=== PATIENT | female | born 1995 | race American Indian/Alaskan Native ===

== ENCOUNTER 2018-05-11 00:36 | Inpatient (IN) | payer MEDICAID ==
[2018-05-11] MEDS ORDERED: ZOFRAN IV PRN ×2 (00:52→08:00)
[2018-05-11] MEDS ORDERED: BRETHINE IVP PRN (00:52)
[2018-05-11] MEDS ORDERED: SUBLIMAZE IV PRN (00:52)
[2018-05-11] MEDS ORDERED: STADOL IV PRN (00:52)
[2018-05-11] MEDS ORDERED: MINERAL OIL PO PRN (00:52)
[2018-05-11] MEDS ORDERED: AMPICILLIN/NS 2 GM/100 ML 2 GM/100 ML BAG IV ONE (00:52)
[2018-05-11] MEDS ORDERED: XYLOCAINE 2% INFILTRATI ONE (00:52)
[2018-05-11] MEDS ORDERED: PHENERGAN PO PRN ×2 (00:52→08:00)
[2018-05-11] MEDS ORDERED: BRETHINE SUB-Q PRN (00:52)
--- NOTE | 2018-05-11 00:52 | History and Physical Report ---
History of Present Illness Date of examination: 05/11/18 Date of admission: 05/11/18 00:41 Chief complaint: Labor History of present illness: Pt is a 22yo BF EDC 05/16/18; EGA 39 2/7 weeks presents to L&D complaining of RUC's q 3-4 mins. She received care at [facility] but records are not available. Past History Past Medical History: no pertinent history Past Surgical History: no surgical history Social history: no significant social history, single - Obstetrical History Expected Date of Delivery: 05/16/18 Actual Gestation: 39 Week(s) 2 Day(s) Medications and Allergies Allergies Allergy/AdvReac Type Severity Reaction Status Date / Time No Known Allergies Allergy Verified 05/11/18 01:12 Review of Systems All systems: negative - Vital Signs Vital signs: Vital Signs Pulse Pulse Ox 115 H 98 05/11/18 00:45 05/11/18 00:45 Temp Pulse Resp BP Pulse Ox 107 H 90 05/11/18 00:46 05/11/18 00:46 - Physical Exam Breasts: Positive: deferred Cardiovascular: Regular rate Lungs: Positive: Clear to auscultation Abdomen: Positive: normal appearance Genitourinary (Female): Positive: normal external genitalia Vagina: Positive: normal moisture Uterus: Positive: enlarged Extremities: Positive: normal - Obstetrical FHR: category 1 Uterine Contraction Monitor Mode: External Cervical Dilatation: 5 (per nurse) Cervical Effacement Percentage: 70 (per nurse) station: -2 Uterine Contraction Pattern: Regular Uterine Tone Measurement Phase: Contraction Uterine Contraction Intensity: Moderate Results Result Diagrams: 05/11/18 01:18 All other labs normal. Assessment and Plan - Patient Problems (1) 39 weeks gestation of Onset Date: 05/11/18 Current Visit: Yes Status: Acute Plan to address problem: A: IUP @ 39 2/7 weeks in labor Unknown GBS Anemia P: Admit to L&D for expectant vaginal delivery IV Ampicillin Obtain records
[2018-05-11] MEDS ORDERED: LACTATED RINGERS 1,000 ML IV SCH ×2 (01:00→09:00)
[2018-05-11] MEDS ORDERED: PITOCin/NS 20 UNIT/1000ML DRIP 20 UNITS/1,000 ML BAG IV SCH ×2 (01:00→08:00)
[2018-05-11] MEDS ORDERED: PITOCin/NS 30 UNIT/500ML 30 UNITS/500 ML BAG IV SCH (01:00)
[2018-05-11 01:43] LABS: Hemoglobin 8.6 gm/dl (10.1-14.3); Mean Corpuscular HGB Conc 31 % (30-34); Mean Corpuscular Volume 71 fl (79-97); Platelet Count 315 K/mm3 (140-440); Red Blood Count 3.96 M/mm3 (3.65-5.03); Red Cell Distribution Width 17.7 % (13.2-15.2)
[2018-05-11] MEDS ORDERED: NARCAN 2 MG/2 ML IV PRN (04:31)
--- NOTE | 2018-05-11 04:33 | Anesthesia Consultation ---
Anesthesia Consult and Med Hx Date of service: 05/11/18 - Airway Anesthetic Teeth Evaluation: Good ROM Head & Neck: Adequate Mental/Hyoid Distance: Adequate Mallampati Class: Class III Intubation Access Assessment: Probably Good - Pulmonary Exam CTA: Yes - Cardiac Exam Cardiac Exam: No Murmur - Pre-Operative Health Status ASA Pre-Surgery Classification: ASA2 Proposed Anesthetic Plan: Epidural - Pulmonary Hx Asthma: No COPD: No Hx Pneumonia: No - Cardiovascular System Hx Hypertension: No - Central Nervous System Hx Seizures: No Hx Psychiatric Problems: No - Endocrine Hx Renal Disease: No Hx End Stage Renal Disease: No Hx Hypothyroidism: No Hx Hyperthyroidism: No - Hematic Hx Anemia: No Hx Sickle Cell Disease: No - Other Systems Hx Alcohol Use: No
--- NOTE | 2018-05-11 04:33 | Anesthesia Day of Surgery ---
Anesthesia Day of Surgery - Day of Surgery Patient Examined: Yes Patient H&P Reviewed: Yes Patient is NPO: Yes Beta Blockers: No Cardiac Clearance: No Pulmonary Clearance: No
[2018-05-11] MEDS ORDERED: AMPICILLIN/NS 1 GM/50 ML 1 GM/50 ML BAG IV SCH (04:53)
[2018-05-11] MEDS: fentaNYL-BUPIV 2 MCG/ML-0.125% 200 MCG/100 ML BAG EPIDURAL SCH ×2 (05:03→07:20)
--- NOTE | 2018-05-11 07:31 | Procedure Note ---
OB Delivery Note - Delivery Date of Delivery: 05/11/18 Surgeon: CHEL TATE Estimated blood loss: other (150mls) - Vaginal Delivery presentation: vertex Delivery position: OA Intrapartum events: mult.variable deceleratio Delivery induction: none Delivery augmentation: rupture of membranes Delivery monitor: external FHT, external uterine Route of delivery: Delivery placenta: spontaneous Delivery cord: nuchal cord, 3 umbilical vessels Episiotomy: none Delivery laceration: none Anesthesia: epidural Delivery comments: delivered OA and placed on Mom's chest for [id number] bonding and delayed cord clamping - Infant A at 1 minute: 8 at 5 minutes: 9 Infant Gender: Male (2746gms)
[2018-05-11] MEDS ORDERED: PHENERGAN PR PRN (08:00)
[2018-05-11] MEDS ORDERED: BENADRYL PO PRN (08:00)
[2018-05-11] MEDS ORDERED: SODIUM CHLORIDE FLUSH SYRINGE 10 ML IV PRN (08:00)
[2018-05-11] MEDS ORDERED: TYLENOL PO PRN (08:00)
[2018-05-11] MEDS ORDERED: NORCO 5/325 PO PRN (08:00)
[2018-05-11] MEDS ORDERED: TUCKS PAD TP PRN (08:00)
[2018-05-11] MEDS ORDERED: LANSINOH TP PRN (08:00)
[2018-05-11] MEDS ORDERED: LACTATED RINGERS 1,000 ML ONE (09:02)
[2018-05-11] MEDS ORDERED: DULCOLAX PR PRN (10:00)
[2018-05-11 10:02] LABS: Hematocrit 26.3 % (30.3-42.9); Hemoglobin 8.4 gm/dl (10.1-14.3)
[2018-05-11 10:25] LABS: Amphetamine Screen,Urine PRESUMPTIVE NEGATIVE; Benzodiazepines Screen,Urine PRESUMPTIVE NEGATIVE; Cannabinoid Screen,Urine PRESUMPTIVE NEGATIVE; Cocaine Screen,Urine PRESUMPTIVE NEGATIVE; Methadone Screen,Urine PRESUMPTIVE NEGATIVE; Opiate Screen,Urine PRESUMPTIVE NEGATIVE
[2018-05-11] MEDS ORDERED: AMMONIA INHALANT IH ONE ×2 (13:39→14:30)
[2018-05-11] MEDS: PRENATAL VITAMIN PO SCH (14:56)
[2018-05-11] MEDS: COLACE PO SCH ×2 (14:56→22:09)
[2018-05-11] MEDS: FEOSOL PO SCH ×2 (14:56→22:09)
[2018-05-11] MEDS: IBUPROFEN PO SCH ×2 (14:57→20:20)
[2018-05-11 19:54] LABS: Hematocrit 26.2 % (30.3-42.9); Hemoglobin 8.1 gm/dl (10.1-14.3)
[2018-05-11] MEDS ORDERED: MILK OF MAGNESIA PO PRN (22:00)
[2018-05-12] MEDS: IBUPROFEN PO SCH ×3 (05:32→18:02)
[2018-05-12] MEDS ORDERED: BOOSTRIX IM ONE (06:00)
[2018-05-12] MEDS ORDERED: M-M-R II VACCINE SUB-Q ONE (11:00)
[2018-05-12] MEDS: FEOSOL PO SCH ×2 (11:49→21:57)
[2018-05-12] MEDS: COLACE PO SCH ×2 (11:50→21:57)
[2018-05-12] MEDS: PRENATAL VITAMIN PO SCH (11:50)
--- NOTE | 2018-05-12 12:12 | Progress Note ---
Assessment and Plan - Patient Problems (1) 39 weeks gestation of Onset Date: 05/11/18 Current Visit: Yes Status: Resolved (2) (normal spontaneous vaginal delivery) Onset Date: 05/12/18 Current Visit: Yes Status: Resolved Plan to address problem: A: S/P - PPD #1 Doing well Asymptomatic anemia - stable P: May go home today. Subjective - Subjective Date of service: 05/12/18 Principal diagnosis: s/p - PPD #1 Interval history: Pt is a 22yo BF EDC 05/16/18; EGA 39 2/7 weeks presents to L&D complaining of RUC's q 3-4 mins. She received care at [facility] but records are not available. Objective - Vital Signs Latest vital signs: Vital Signs Temp Pulse Resp BP BP Pulse Ox 05/12/18 07:40 98.1 F 70 16 95/53 98 05/11/18 23:57 97.2 F L 93 H 20 104/52 99 05/11/18 16:04 98.6 F 84 18 99/47 Intake and Output 05/11/18 05/12/18 05/12/18 22:59 06:59 14:59 Intake Total 840 240 120 Balance 840 240 120 Intake: Oral 440 240 120 Other 400 Other: Total, Intake Amount 200 240 120 # Voids Void 1 1 1 - Exam Breasts: Present: deferred Abdomen: Present: normal appearance, soft Uterus: Present: normal, firm, fundal height below umbilicus Extremities: Present: normal - Labs Labs: Abnormal lab results 05/11/18 Range/Units 19:35 Hgb 8.1 L (10.1-14.3) gm/dl Hct 26.2 L (30.3-42.9) % Laboratory Tests 05/11/18 05/11/18 05/11/18 01:18 01:18 01:30 WBC 8.6 RBC 3.96 Hgb 8.6 L Hct 28.0 L MCV 71 L MCH 22 L MCHC 31 RDW 17.7 H Plt Count 315 Urine Opiates Screen Urine Methadone Screen Ur Barbiturates Screen Ur Phencyclidine Scrn Ur Amphetamines Screen U Benzodiazepines Scrn Urine Cocaine Screen U Marijuana (THC) Screen Drugs of Abuse Note RPR Nonreactive Blood Type O POSITIVE Antibody Screen Negative 05/11/18 05/11/18 05/11/18 09:38 10:00 19:35 WBC RBC Hgb 8.4 L 8.1 L Hct 26.3 L 26.2 L MCV MCH MCHC RDW Plt Count Urine Opiates Screen Presumptive negative Urine Methadone Screen Presumptive negative Ur Barbiturates Screen Presumptive negative Ur Phencyclidine Scrn Presumptive negative Ur Amphetamines Screen Presumptive negative U Benzodiazepines Scrn Presumptive negative Urine Cocaine Screen Presumptive negative U Marijuana (THC) Screen Presumptive negative Drugs of Abuse Note Disclamer RPR Blood Type Antibody Screen
--- NOTE | 2018-05-12 12:15 | Discharge Summary ---
Providers - Providers Date of Admission: 05/11/18 00:41 Date of discharge: 05/12/18 Attending physician: CHEL TATE Primary care physician: CHEL TATE Hospitalization Reason for admission: active labor, IUP at term Delivery: Episiotomy: none Laceration: none Other procedures: none complications: none Discharge diagnosis: IUP at term delivered [place] baby: male Hospital course: Unremarkable. Condition at discharge: Good Disposition: DC-01 TO HOME OR SELFCARE - Discharge Diagnoses (1) 39 weeks gestation of Status: Resolved (2) (normal spontaneous vaginal delivery) Status: Resolved Plan - Discharge Medications Prescriptions: Ferrous Sulfate [Feosol 325 MG tab] 325 mg PO BID #60 tablet Ibuprofen [Motrin 600 MG tab] 600 mg PO Q6H #30 tablet Vit-Fe Fumar-FA [ Vitamin] 1 each PO QDAY #30 tablet - Provider Discharge Summary Activity: routine, no sex for 6 weeks, no heavy lifting 4 weeks, no strenuous exercise Diet: routine Instructions: routine Additional instructions: [] Smoking cessation referral if applicable(refer to patient education folder for contact #) [] Refer to [facility] Booklet Call your doctor immediately for: * Fever > 100.5 * Heavy vaginal bleeding ( >1 pad per hour) * Severe persistent headache * Shortness of breath * Reddened, hot, painful area to leg or breast * Drainage or odor from incision. * Keep incision clean and dry at all times and follow doctor's instructions regarding bathing/showering - Follow up plan Follow up: CHEL TATE MD [Primary Care Provider] - 6 Weeks
[2018-05-12 16:56] VITALS: BP 112/66
== END 2018-05-12 23:52 | disposition home or self-care (01) | DRG 775 ==
LOC: TRG 00:36 → LD 00:41 → OB 09:22
PROVIDERS: ADMIT Obstetrics & Gynecology; ATTEND Obstetrics & Gynecology
PROC: 10E0XZZ Delivery of Products of Conception, External Approach (ICD-10-PCS; principal; 2018-05-11)
PROC: 3E0R3BZ Introduction of Anesthetic Agent into Spinal Canal, Percutaneous Approach (ICD-10-PCS; 2018-05-11)
PROC: 3E0R33Z Introduction of Anti-inflammatory into Spinal Canal, Percutaneous Approach (ICD-10-PCS; 2018-05-11)
PROC: 3E0234Z Introduction of Serum, Toxoid and Vaccine into Muscle, Percutaneous Approach (ICD-10-PCS; 2018-05-12)
DX: O76 Abnormality in fetal heart rate and rhythm complicating labor and delivery (principal); O99.02 Anemia complicating childbirth; D64.9 Anemia, unspecified; O69.81X0 Labor and delivery complicated by cord around neck, without compression, not applicable or unspecified; Z37.0 Single live birth; Z3A.39 39 weeks gestation of pregnancy; Z23 Encounter for immunization
CPT/HCPCS: 36415; 80307; 85014; 85018; 85027; 86592; 86850; 86900; 86901; 90471; 90715; G0378; J0290; J0595; J2590; J3010; J7120

== ENCOUNTER 2020-08-20 07:41 | Emergency (ER) | payer SELFPAY ==
[2020-08-20] MEDS ORDERED: HYDROcodone/ACETAMINOPHEN 7.5-325MG TAB PO ONE (10:18)
--- NOTE | 2020-08-20 10:22 | Emergency Department Report ---
ED ENT HPI - General Chief complaint: Dental/Oral Stated complaint: TOOTHACHE Time Seen by Provider: 08/20/20 10:17 Source: patient Mode of arrival: Ambulatory Limitations: No Limitations - History of Present Illness Initial comments: 24-year-old -[place] female presents to the emergency room complaining of right upper teeth pain that is been going on intermittently for 1 year but the last week is gotten worse. Patient states that it is a partial tooth that is broken off. Patient states she has been taking Aleve last dose was last night. She denies any difficulty swallowing no fever no chills no nausea no vomiting. She denies smoking cigarettes. She states that she does have a dentist in [place] but she is not able to afford the tooth to be extracted. MD complaint: tooth pain Onset/Timin -: week(s) (1 week reoccurring), year(s) Location: tooth # (6) Severity scale (0 -10): 10 Quality: stabbing, aching, sharp, constant Consistency: constant Improves with: none Worsens with: eating Context- Dental: history of dental caries Associated Symptoms: gum swelling, toothache - Related Data Previous Rx's Medication Instructions Recorded Last Taken Type Clindamycin [Clindamycin CAP] 300 mg PO Q8H #30 cap 08/20/20 Unknown Rx Ibuprofen [Motrin 800 MG tab] 800 mg PO Q8HR PRN #30 tablet 08/20/20 Unknown Rx traMADoL [Ultram 50 MG tab] 50 mg PO Q6HR PRN #12 tablet 08/20/20 Unknown Rx Allergies Allergy/AdvReac Type Severity Reaction Status Date / Time No Known Allergies Allergy Verified 08/20/20 08:11 ED Dental HPI - General Chief complaint: Dental/Oral Stated complaint: TOOTHACHE Time Seen by Provider: 08/20/20 10:17 Source: patient Mode of arrival: Ambulatory Limitations: No Limitations - Related Data Previous Rx's Medication Instructions Recorded Last Taken Type Clindamycin [Clindamycin CAP] 300 mg PO Q8H #30 cap 08/20/20 Unknown Rx Ibuprofen [Motrin 800 MG tab] 800 mg PO Q8HR PRN #30 tablet 08/20/20 Unknown Rx traMADoL [Ultram 50 MG tab] 50 mg PO Q6HR PRN #12 tablet 08/20/20 Unknown Rx Allergies Allergy/AdvReac Type Severity Reaction Status Date / Time No Known Allergies Allergy Verified 08/20/20 08:11 ED Review of Systems ROS: Stated complaint: TOOTHACHE Other details as noted in HPI Comment: All other systems reviewed and negative ED Past Medical Hx - Past Medical History Hx Hypertension: No Hx Congestive Heart Failure: No Hx Diabetes: No Hx Deep Vein Thrombosis: No Hx Renal Disease: No Hx Sickle Cell Disease: No Hx Seizures: No Hx Asthma: No Hx COPD: No Hx HIV: No - Social History Smoking Status: Never Smoker Substance Use Type: None - Medications Home Medications: Home Medications Medication Instructions Recorded Confirmed Last Taken Type Clindamycin [Clindamycin CAP] 300 mg PO Q8H #30 cap 08/20/20 Unknown Rx Ibuprofen [Motrin 800 MG tab] 800 mg PO Q8HR PRN #30 tablet 08/20/20 Unknown Rx traMADoL [Ultram 50 MG tab] 50 mg PO Q6HR PRN #12 tablet 08/20/20 Unknown Rx ED Physical Exam - General Limitations: No Limitations General appearance: alert, in no apparent distress, other (Tearful) - Head Head exam: Present: atraumatic, normocephalic - Eye Eye exam: Present: normal appearance - ENT ENT exam: Present: mucous membranes moist - Expanded ENT Exam Expanded Teeth exam: Present: fractured tooth # (6), dental tenderness # (6), gingival enlargement - Neck Neck exam: Present: normal inspection, full ROM. Absent: tenderness - Respiratory Respiratory exam: Absent: accessory muscle use - Cardiovascular Cardiovascular Exam: Present: regular rate - Extremities Exam Extremities exam: Present: normal inspection, full ROM - Back Exam Back exam: Present: normal inspection - Neurological Exam Neurological exam: Present: alert, oriented X3, normal gait - Psychiatric Psychiatric exam: Present: normal affect, normal mood - Skin Skin exam: Present: warm, dry, intact, normal color. Absent: rash ED Medical Decision Making - Medical Decision Making 24-year-old -[place] female presents to the emergency room complaining of right upper teeth pain that is been going on intermittently for 1 year but the last week is gotten worse. Patient states that it is a partial tooth that is broken off. Patient states she has been taking Aleve last dose was last night. She denies any difficulty swallowing no fever no chills no nausea no vomiting. She denies smoking cigarettes. She states that she does have a dentist in [place] but she is not able to afford the tooth to be extracted. Patient is given a [place] 7.5 mg in ACC and will be discharged on clindamycin 300 mg every 8 hours and tramadol 50 mg every 8 hours as well as ibuprofen 800 mg every 8 hours Critical care attestation.: If time is entered above; I have spent that time in minutes in the direct care of this critically ill patient, excluding procedure time. ED Disposition Clinical Impression: Dental abscess Disposition: TO HOME OR SELFCARE Is pt being admited?: No Does the pt Need Aspirin: No Condition: Stable Instructions: Dental Abscess, [id number] Additional Instructions: Please take medication as prescribed. Is very important for you to follow-up with a dentist. I have listed several below for your convenience Prescriptions: Clindamycin [Clindamycin CAP] 300 mg PO Q8H #30 cap Ibuprofen [Motrin 800 MG tab] 800 mg PO Q8HR PRN #30 tablet PRN Reason: Pain , Severe (7-10) traMADoL [Ultram 50 MG tab] 50 mg PO Q6HR PRN #12 tablet PRN Reason: Pain Referrals: [facility] [Outside] - 3-5 Days [facility] [Outside] - 3-5 Days [facility] [Outside] - 3-5 Days Forms: Work/School Release Form(ED)
[2020-08-20 10:26] VITALS: BP 123/71
== END 2020-08-20 11:09 | disposition home or self-care (01) ==
LOC: ED 07:41
DX: K04.7 Periapical abscess without sinus (principal); Z79.899 Other long term (current) drug therapy
CPT/HCPCS: 99282

== ENCOUNTER 2020-11-06 15:35 | Emergency (ER) | payer SELFPAY ==
[2020-11-06 16:51] VITALS: BP 131/65
--- NOTE | 2020-11-06 16:58 | Emergency Department Report ---
Chief Complaint: Medical Clearance Stated Complaint: STD CHECK Time Seen by Provider: 11/06/20 16:51 - HPI History of Present Illness: Patient is a 24-year-old female presents emergency room with points of a routine STD check. She denies any symptoms at all currently. She states that she just wants to have a routine panel performed. No past medical history. No allergies medications. Vitals are stable On exam: Non toxic appearing, no acute distress atraumatic, normocephalic normal appearance of the eyes, EOMI, no periorbital edema or ecchymosis moist mucus membranes No respiratory stress, no accessory muscle use A&O x4, no focal neuro deficit skin is warm, dry, intact Patient is presenting for asymptomatic routine STD screening Patient given the appropriate resources Discussed return precautions Medical screen examination performed and there is no threat to life or limb at this time - Exam Vital Signs: Vital Signs 11/06/20 16:50 Temperature 97.8 F Pulse Rate 91 H Respiratory 18 Rate Blood Pressure 131/65 O2 Sat by Pulse 99 Oximetry MSE screening note: Focused history and physical exam performed. Due to findings the following was ordered: ED Disposition for MSE Clinical Impression: Encounter for medical screening examination Disposition: Z-07 MED SCREENING EXAM-LEFT Is pt being admited?: No Does the pt Need Aspirin: No Condition: Stable Additional Instructions: Please follow-up with the clinic or the health department for full STD panel. Please have any partners tested and treated as well. Avoid sexual intercourse. return to emergency room for new or worsening symptoms. walk in clinic: [facility] Address: [address] [place] [id number] Referrals: [facility] [Provider Group] - 2-3 Days [facility] [Outside] - 2-3 Days [facility] [Provider Group] - 2-3 Days Time of Disposition: 16:56 Print Language: SOUTH KOREAN
== END 2020-11-06 16:58 | disposition left against medical advice (07) ==
LOC: ED 15:35
DX: Z11.3 Encounter for screening for infections with a predominantly sexual mode of transmission (principal); Z53.21 Procedure and treatment not carried out due to patient leaving prior to being seen by health care provider

== ENCOUNTER 2021-03-15 22:21 | Inpatient (IN) | payer SELFPAY ==
[2021-03-15] MEDS ORDERED: ONDANSETRON 4 MG ODT TAB PO ONE (22:58)
[2021-03-15] MEDS ORDERED: SODIUM CHLORIDE 0.9% 1000 ML 1,000 ML IV ONE ×2 (23:19→23:54)
--- NOTE | 2021-03-15 23:21 | Event Note ---
ED Screening Note Date of service: 03/15/21 Time: 23:20 ED Screening Note: Patient a 25-year-old -[place] female who presents for chest pain, shortness of breath abdominal pain with nausea vomiting, malaise ,dysuria frequency x3 days. Patient denies suspicious contact there is been no travel, no cough. Denies other medical history. This initial assessment/diagnostic orders/clinical plan/treatment(s) is/are subject to change based on patients health status, clinical progression and re- assessment by fellow clinical providers in the ED. Further treatment and workup at subsequent clinical providers discretion. Patient/guardian urged not to elope from the ED as their condition may be serious if not clinically assessed and managed. Initial orders include: ekg, cxr, cmp, cbc, lipase, lactic, ua, hcg, iv, IVFs,
[2021-03-16] MEDS ORDERED: fentaNYL 100 MCG/2 ML INJ IV ONE
--- NOTE | 2021-03-16 00:05 | Emergency Department Report ---
HPI - General Chief Complaint: Back Pain/Injury Time Seen by Provider: 03/15/21 22:54 - HPI HPI: Room 37 The patient is a 25-year-old female present with a chief complaint left flank pain. Patient states she has had pain intermittently in her left flank for the past 3 weeks associated with nausea and vomiting and decreased p.o. intake. The patient states she is also felt short of breath occasionally for approximately 2.5 weeks. Patient denies history of cough or fever. Patient states she has had diarrhea for the past 2.5 weeks. Patient denies dysuria or hematuria. Patient states she has not been vaccinated against Covid. The patient states a family member drove her to the emergency department and she is not driving. Patient currently gives her pain a score of 5/10 ED Past Medical Hx - Past Medical History Previous Medical History?: No - Surgical History Past Surgical History?: No - Family History Family history: no significant - Social History Smoking Status: Never Smoker Substance Use Type: None (Denies illicit drug) - Medications Home Medications: Home Medications Medication Instructions Recorded Confirmed Last Taken Type Clindamycin [Clindamycin CAP] 300 mg PO Q8H #30 cap 08/20/20 Unknown Rx Ibuprofen [Motrin 800 MG tab] 800 mg PO Q8HR PRN #30 tablet 08/20/20 Unknown Rx traMADoL [Ultram 50 MG tab] 50 mg PO Q6HR PRN #12 tablet 08/20/20 Unknown Rx ED Review of Systems ROS: Stated complaint: BREATHING/HEAVY BLEEDING Other details as noted in HPI Constitutional: denies: fever Eyes: denies: eye pain ENT: denies: throat pain Respiratory: shortness of breath. denies: cough Cardiovascular: denies: chest pain Endocrine: no symptoms reported Gastrointestinal: nausea, vomiting, diarrhea Genitourinary: denies: dysuria, hematuria Musculoskeletal: back pain Neurological: denies: headache Physical Exam - Physical Exam Vital Signs: Vital Signs 03/15/21 22:26 Temperature 99.3 F Pulse Rate 142 H Respiratory 17 Rate Blood Pressure 134/90 O2 Sat by Pulse 99 Oximetry Physical Exam: GENERAL: The patient is well-developed well-nourished female sitting on stretcher not appearing to be in acute distress. [] HEENT: Normocephalic. Atraumatic. Extraocular motions are intact. Patient has moist mucous membranes. NECK: Supple. Trachea midline CHEST/LUNGS: Clear to auscultation. There is no respiratory distress noted. HEART/CARDIOVASCULAR: Regular. There is tachycardia. There is no gallop rub or murmur. ABDOMEN: Abdomen is soft, nontender. Patient has normal bowel sounds. There is no abdominal distention. SKIN: There is no rash. There is no edema. There is no diaphoresis. NEURO: The patient is awake, alert, and oriented. The patient is cooperative. The patient has no focal neurologic deficits. The patient has normal speech. GCS 15 MUSCULOSKELETAL: There is left CVA tenderness. There is no evidence of acute injury. ED Course Vital Signs 03/15/21 22:26 Temperature 99.3 F Pulse Rate 142 H Respiratory 17 Rate Blood Pressure 134/90 O2 Sat by Pulse 99 Oximetry ED Medical Decision Making - Lab Data Result diagrams: 03/15/21 23:42 03/15/21 23:42 - EKG Data -: EKG Interpreted by Me EKG shows normal: sinus rhythm Rate: tachycardia (103 bpm) - EKG Data When compared to previous EKG there are: previous EKG unavailable Interpretation: nonspecific ST-T wave chioma (T wave inversion leads V2), other - Radiology Data Radiology results: image reviewed (Chest x-ray) interpreted by me: Chest x-ray-no definite focal infiltrates, no pneumothorax - Medical Decision Making Unable to obtain VQ scan at night at this facility. Patient's creatinine precludes IV contrast administration for CTA. Given patient's thrombocytopenia I do not feel comfortable initiating heparin drip at this time. Will defer to hospitalist Dr Zhang - Differential Diagnosis Pyelonephritis, renal colic, pneumonia Critical care attestation.: If time is entered above; I have spent that time in minutes in the direct care of this critically ill patient, excluding procedure time. ED Disposition Clinical Impression: Pyelonephritis, Leukocytosis, Thrombocytopenia, Lactic acidosis, Renal insufficiency Disposition: ADMITTED INPATIENT Is pt being admited?: Yes Does the pt Need Aspirin: No Condition: Stable Time of Disposition: 01:33 (Hospitalist called (Dr Zhang))
[2021-03-16 00:19] LABS: Hematocrit 30.4 % (30.3-42.9); Hemoglobin 9.8 gm/dl (10.1-14.3); Mean Corpuscular HGB Conc 32 % (30-34); Mean Corpuscular Volume 84 fl (79-97); Red Blood Count 3.64 M/mm3 (3.65-5.03); Red Cell Distribution Width 17.9 % (13.2-15.2)
[2021-03-16 00:24] LABS: Platelet Count 57 K/mm3 (140-440)
[2021-03-16 00:25] LABS: INR 1.21 (0.87-1.13); Partial Thromboplastin Time 26.4 Sec. (24.2-36.6)
[2021-03-16 00:28] LABS: Color,Urine BLOODY (Yellow); RBC,Urine > 182.0 /HPF (0.0-6.0)
[2021-03-16 00:29] LABS: HCG Qualitative,Urine Negative (Negative); WBC,Urine > 182.0 /HPF (0.0-6.0)
[2021-03-16 00:36] LABS: Albumin 3.9 g/dL (3.9-5)
[2021-03-16 00:42] LABS: Calcium 9.8 mg/dL (8.4-10.2)
[2021-03-16] MEDS ORDERED: cefTRIAXone/NS 2 GM/100 ML 2 GM/100 ML BAG IV ONE (01:19)
--- NOTE | 2021-03-16 01:23 | XRay Report ---
CHEST 1 VIEW 03/16/2021 12:41 AM INDICATION / CLINICAL INFORMATION: chest pain. Lower back and flank pain x3 weeks. COMPARISON: None available. FINDINGS: SUPPORT DEVICES: None. HEART / MEDIASTINUM: Cardiomediastinal silhouette appears mildly enlarged. LUNGS / PLEURA: No significant pulmonary or pleural abnormality. No pneumothorax. ADDITIONAL FINDINGS: Increase density/fullness in the left upper quadrant with possible displacement of the gastric bubble to the midline which could represent splenomegaly. IMPRESSION: 1. Mildly enlarged cardiomediastinal silhouette. 2. Possible splenomegaly. Signer Name: Jewel Wyatt MD Signed: 03/16/2021 1:18 AM Workstation Name: [id number]
[2021-03-16] MEDS ORDERED: MORPHINE 4 MG/1 ML INJ IV PRN (03:07)
[2021-03-16] MEDS ORDERED: ACETAMINOPHEN 325 MG TAB PO PRN (03:07)
[2021-03-16] MEDS ORDERED: MORPHINE 2 MG/1 ML INJ IV PRN (03:07)
[2021-03-16] MEDS ORDERED: MAGNESIUM HYDROXIDE (MOM) ORAL LIQD UDC PO PRN (03:07)
[2021-03-16 03:23] LABS: Anisocytosis RARE; Total Cells Counted 100
[2021-03-16 03:24] LABS: Hypochromasia Rare
--- NOTE | 2021-03-16 03:24 | History and Physical Report ---
History of Present Illness Date of examination: 03/16/21 Date of admission: 03/16/2021 Chief complaint: Nausea Vomiting Diarrhea History of present illness: 25-year-old -[place] female with no significant past medical history presents to the emergency room today complaining of left flank pain which has been ongoing for about 3 weeks. She has had associated nausea, vomiting and diarrhea. She denies any fever or chills, denies any bright red blood per rec indira and denies any melena. She denies any hematuria or dysuria. Patient denies any sick contacts and no recent travel. Denies any contact with anyone with COVID-19. She admits that she has not been vaccinated against COVID-19. Patient has been feeling generally weak and has not been very active over the past few weeks. She admits that she has just been lying down at home. She has had poor appetite. She also complains of intermittent chest pain which is worse on taking deep breaths. She denies any headache or dizziness and denies any diaphoresis. She denies any lower extremity pain or swelling. Patient was tachycardic upon arrival in the emergency room. Work-up in the emergency room today, chest x-ray reveals:1. Mildly enlarged cardiomediastinal silhouette. 2. Possible splenomegaly. Labs shows a leukocytosis of 292.3, platelet count of 57, hemoglobin of 9.8, lactic acid of 8.6, BUN of 20 and creatinine of 2.9. Urinalysis was significant for leukocytes greater than 182. D-dimer greater than 10,000 Past History Past Medical History: No medical history Past Surgical History: No surgical history Social history: no significant social history Family history: no significant family history Medications and Allergies Allergies Allergy/AdvReac Type Severity Reaction Status Date / Time No Known Allergies Allergy Verified 08/20/20 08:11 Home Medications Medication Instructions Recorded Confirmed Last Taken Type Clindamycin [Clindamycin CAP] 300 mg PO Q8H #30 cap 08/20/20 Unknown Rx Ibuprofen [Motrin 800 MG tab] 800 mg PO Q8HR PRN #30 tablet 08/20/20 Unknown Rx traMADoL [Ultram 50 MG tab] 50 mg PO Q6HR PRN #12 tablet 08/20/20 Unknown Rx Active Meds: Active Medications Acetaminophen (Acetaminophen 325 Mg Tab) 650 mg PO Q4H PRN PRN Reason: Pain MILD(1-3)/Fever >100.5/MOY Enoxaparin Sodium (Enoxaparin 100 Mg/1 Ml Inj) 84 mg SUB-Q ONCE ONE; Protocol Stop: 03/16/21 03:12 Sodium Chloride (Nacl 0.9% 1000 Ml) 1,000 mls @ 125 mls/hr IV DIRECT JANIE Ceftriaxone Sodium (Rocephin/Ns 1 Gm/50 Ml) 1 gm in 50 mls @ 100 mls/hr IV Q24H JANIE; Protocol Magnesium Hydroxide (Magnesium Hydroxide (Mom) Oral Liqd Udc) 30 ml PO Q4H PRN PRN Reason: Constipation Morphine Sulfate (Morphine 2 Mg/1 Ml Inj) 2 mg IV Q4H PRN PRN Reason: Pain, Moderate (4-6) Morphine Sulfate (Morphine 4 Mg/1 Ml Inj) 4 mg IV Q4H PRN PRN Reason: Pain , Severe (7-10) Ondansetron HCl (Ondansetron 4 Mg/2 Ml Inj) 4 mg IV Q8H PRN PRN Reason: Nausea And Vomiting Sodium Chloride (Sodium Chloride 0.9% 10 Ml Flush Syringe) 10 ml IV BID JANIE Sodium Chloride (Sodium Chloride 0.9% 10 Ml Flush Syringe) 10 ml IV PRN PRN PRN Reason: LINE FLUSH Review of Systems Constitutional: no fever, no chills Ears, nose, mouth and throat: no nasal congestion, no sore throat Cardiovascular: no chest pain, no palpitations Respiratory: no cough, no shortness of breath Gastrointestinal: nausea, vomiting, diarrhea, loss of appetite Genitourinary Female: flank pain (Left Flank Pain), dysuria, no hematuria Musculoskeletal: no neck pain, no low back pain Integumentary: no rash, no pruritis Neurological: no headaches, no confusion Psychiatric: no anxiety, no depression Endocrine: no polyphagia, no polydipsia, no polyuria, no nocturia Exam - Constitutional Vitals: Temp Pulse Resp BP Pulse Ox 98.7 F 98 H 20 115/79 97 03/16/21 03:05 03/16/21 03:05 03/16/21 03:05 03/16/21 03:05 03/16/21 03:05 General appearance: Present: no acute distress, well-nourished - EENT Eyes: Present: PERRL, EOM intact. Absent: scleral icterus ENT: hearing intact, clear oral mucosa, dentition normal - Neck Neck: Present: supple, normal ROM - Respiratory Respiratory effort: normal Respiratory: bilateral: CTA - Cardiovascular Rhythm: regular Heart Sounds: Present: S1 & S2. Absent: gallop, systolic murmur, diastolic murmur, rub, click - Extremities Extremities: no ischemia, pulses intact, pulses symmetrical, No edema, normal temperature, normal color, Full ROM Peripheral Pulses: within normal limits - Abdominal General gastrointestinal: Present: soft, tender (Tenderness left Flank), non- distended, normal bowel sounds. Absent: mass - Integumentary Integumentary: Present: clear, warm, dry. Absent: rash - Musculoskeletal Musculoskeletal: strength equal bilaterally - Psychiatric Psychiatric: appropriate mood/affect, intact judgment & insight, memory intact, cooperative - Neurologic Neurologic: CNII-XII intact, no focal deficits, moves all extremities Results - Labs CBC & Chem 7: 03/15/21 23:42 03/15/21 23:42 Labs: Abnormal lab results 03/15/21 03/15/21 03/15/21 Range/Units 00:02 23:42 23:42 WBC 292.3 H* (4.5-11.0) K/mm3 RBC 3.64 L (3.65-5.03) M/mm3 Hgb 9.8 L (10.1-14.3) gm/dl MCH 27 L (28-32) pg RDW 17.9 H (13.2-15.2) % Plt Count 57 L (140-440) K/mm3 PT (12.2-14.9) Sec. INR (0.87-1.13) D-Dimer > 30154 H (0-234) ng/mlDDU Potassium 5.2 H (3.6-5.0) mmol/L Carbon Dioxide 20 L (22-30) mmol/L BUN 20 H (7-17) mg/dL Creatinine 2.9 H (0.6-1.2) mg/dL Lactic Acid (0.7-2.0) mmol/L AST 88 H (5-40) units/L Alkaline Phosphatase 257 H (35-129) units/L Urine WBC (Auto) (0.0-6.0) /HPF 1103/15/21 03/15/21 Range/Units 23:42 23:42 Unknown WBC (4.5-11.0) K/mm3 RBC (3.65-5.03) M/mm3 Hgb (10.1-14.3) gm/dl MCH (28-32) pg RDW (13.2-15.2) % Plt Count (140-440) K/mm3 PT 16.6 H (12.2-14.9) Sec. INR 1.21 H (0.87-1.13) D-Dimer (0-234) ng/mlDDU Potassium (3.6-5.0) mmol/L Carbon Dioxide (22-30) mmol/L BUN (7-17) mg/dL Creatinine (0.6-1.2) mg/dL Lactic Acid 8.60 H* (0.7-2.0) mmol/L AST (5-40) units/L Alkaline Phosphatase (35-129) units/L Urine WBC (Auto) > 182.0 H (0.0-6.0) /HPF 03/16/21 Range/Units 00:36 WBC (4.5-11.0) K/mm3 RBC (3.65-5.03) M/mm3 Hgb (10.1-14.3) gm/dl MCH (28-32) pg RDW (13.2-15.2) % Plt Count (140-440) K/mm3 PT (12.2-14.9) Sec. INR (0.87-1.13) D-Dimer (0-234) ng/mlDDU Potassium (3.6-5.0) mmol/L Carbon Dioxide (22-30) mmol/L BUN (7-17) mg/dL Creatinine (0.6-1.2) mg/dL Lactic Acid 8.00 H* (0.7-2.0) mmol/L AST (5-40) units/L Alkaline Phosphatase (35-129) units/L Urine WBC (Auto) (0.0-6.0) /HPF Assessment and Plan - Patient Problems (1) Pyelonephritis Current Visit: Yes Status: Acute Plan to address problem: Patient placed on empiric IV antibiotics. We will await urine culture results. (2) Chest pain Current Visit: Yes Status: Acute Plan to address problem: Etiology is unclear. However in view of patient's elevated D-dimer and clinical presentation we will request a VQ scan to rule out pulmonary embolism. CT angiogram could not be done in view of the patient's elevated creatinine level. (3) Leukocytosis Current Visit: Yes Status: Acute Plan to address problem: Etiology unclear. Malignancy is suspected. We will place consult to heme-onc for evaluation and recommendations (4) Lactic acidosis Current Visit: Yes Status: Acute Plan to address problem: Possibly secondary to the underlying infection. We will continue patient on IV fluid and empiric IV antibiotics. (5) Renal insufficiency Current Visit: Yes Status: Acute Plan to address problem: Patient continued on IV fluid. Consult placed to nephrology for evaluation. (6) Thrombocytopenia Current Visit: Yes Status: Acute Plan to address problem: We will continue to monitor CBC and await further recommendations from hemato logy. (7) DVT prophylaxis Current Visit: Yes Status: Acute Plan to address problem: Patient has been placed on anticoagulation with Lovenox. (8) Full code status Current Visit: Yes Status: Acute Plan to address problem: Patient is full code.
[2021-03-16] MEDS ORDERED: ENOXAPARIN 100 MG/1 ML INJ SUB-Q ONE (04:11)
--- NOTE | 2021-03-16 05:57 | Cat Scan Report ---
CT ABDOMEN AND PELVIS WITHOUT CONTRAST INDICATION / CLINICAL INFORMATION: Splenomegaly , rule out malignancy. TECHNIQUE: Axial CT images were obtained through the abdomen and pelvis without IV contrast. All CT scans at this location are performed using CT dose reduction for ALARA by means of automated exposure control. COMPARISON: No prior CT for comparison. Chest radiograph dated 03/16/21 FINDINGS: LOWER CHEST: Heart is normal size, but there is a small moderate pericardial effusion measuring up to 1.8 cm at the left ventricular apex. LIVER: No significant abnormality. GALLBLADDER: No significant abnormality. BILE DUCTS: No significant abnormality. PANCREAS: No significant abnormality. SPLEEN: Spleen is markedly enlarged measuring 14.4 cm in AP dimension. Spleen displaces the stomach t o the right. ADRENALS: No significant abnormality. RIGHT KIDNEY / URETER: Enlarged. No stones or hydronephrosis. LEFT KIDNEY / URETER: Enlarged. No stones or hydronephrosis. STOMACH / SMALL BOWEL: No significant abnormality. COLON: No significant abnormality. APPENDIX: No significant abnormality. PERITONEUM: No free fluid. No free air. No fluid collection. LYMPH NODES: Multiple mildly enlarged retroperitoneal and pelvic lymph nodes. A left para-aortic node measures 1.3 cm in short axis. The left pelvic sidewall lymph node measures 1.2 cm in short axis. Mi ldly enlarged bilateral groin lymph nodes. AORTA / ARTERIES: No significant abnormality. IVC / VEINS: No significant abnormality. URINARY BLADDER: No significant abnormality. REPRODUCTIVE ORGANS: No significant abnormality. ADDITIONAL FINDINGS: None. SKELETAL SYSTEM: No significant abnormality. IMPRESSION: 1. Splenomegaly with multiple mildly enlarged retroperitoneal and pelvic lymph nodes. Lymphoma/leukem ia could have this appearance. 2. Small to moderate pericardial effusion. 3. Enlarged kidneys without hydronephrosis. Correlation with renal function is recommended. Signer Name: Jewel Wyatt MD Signed: 03/16/2021 5:53 AM Workstation Name: [id number]
[2021-03-16] MEDS ORDERED: FLU VACC QUAD 2021-22(6MOS UP)/PF 60 MCG/0.5 ML SYRINGE IM ONE (09:17)
[2021-03-16] MEDS: SODIUM CHLORIDE 0.9% 1000 ML 1,000 ML IV SCH ×2 (09:22→18:00)
[2021-03-16] MEDS ORDERED: cefTRIAXone/NS 1 GM/50 ML 1 GM/50 ML BAG IV SCH (10:00)
--- NOTE | 2021-03-16 10:16 | Hem/Onc Consultation ---
History of Present Illness - Reason for Consult Consult date: 03/16/21 leukocytosis, thrombocytopenia, anemia - History of Present Illness Heme consult note televisit via [facility] CPT [id number] Dx: leukocytosis, thrombocytopenia, anemia This is a 25yo AA female who presents to the ED with left sided flank pain and nausea/vomiting x 3 weeks C/o feeling sleepy, occasional chest pain, shortness of breath, and sweating/feeling hot Positive heavy menstrual bleeding starting last month Denies nose bleeds or any other bleeding Denies past medical history Family history unknown, pt is adopted Noted to have elevated WBC and low platelets Creatinine 2.9 on admission and elevated lactic acid 8 Chest xray c/w enlarged cardiomediastinal silhouette, and splenomegaly Abd CT c/w splenomegaly 14cm and enlarged lymph nodes DATA REVIEWED BELOW WBC 292.3 Plts 57 creat 2.9 70% lymphs IMP: Heme malignancy is likely with elevated WBC 292 and low platelets 57 ALL is possible, or nonhodgkins lymphoma with leukemic presentation is a possibility Left sided flank pain likely due to enlarged spleen APL is a possibility, although unlikely REC/PLAN: STAT LABS to include repeat CBC, LDH, uric acid, fibrinogen, flow cytometry Elitek 3mg IV x 1, due to tumor lysis syndrome Planning transfer to [facility] for treatment and management of newly diagnosed leukemia Laboratory Last Values WBC 292.3 K/mm3 (4.5-11.0) H* 03/15/21 23:42 Hgb 9.8 gm/dl (10.1-14.3) L 03/15/21 23:42 MCHC 32 % (30-34) 03/15/21 23:42 Plt Count 57 K/mm3 (140-440) L 03/15/21 23:42 Lymph % (Auto) Lining Stamper 03/15/21 23:42 Lymph # (Auto) Lining Stamper 03/15/21 23:42 Add Manual Diff Complete 03/15/21 23:42 Total Counted 100 03/15/21 23:42 Seg Neutrophils % Lining Stamper 03/15/21 23:42 Seg Neuts % (Manual) 7.0 % (40.0-70.0) L 03/15/21 23:42 Lymphocytes % (Manual) 70.0 % (13.4-35.0) H 03/15/21 23:42 Monocytes % (Manual) 3.0 % (0.0-7.3) 03/15/21 23:42 Blast Cells % 20.0 % 03/15/21 23:42 Nucleated RBC % Not Reportable 03/15/21 23:42 Seg Neutrophils # Man 20.5 K/mm3 (1.8-7.7) H 03/15/21 23:42 Band Neutrophils # 0.0 K/mm3 03/15/21 23:42 Lymphocytes # (Manual) 204.6 K/mm3 (1.2-5.4) H 03/15/21 23:42 Abs React Lymphs (Man) 0.0 K/mm3 03/15/21 23:42 Monocytes # (Manual) 8.8 K/mm3 (0.0-0.8) H 03/15/21 23:42 Eosinophils # (Manual) 0.0 K/mm3 (0.0-0.4) 03/15/21 23:42 Basophils # (Manual) 0.0 K/mm3 (0.0-0.1) 03/15/21 23:42 Metamyelocytes # 0.0 K/mm3 03/15/21 23:42 Myelocytes # 0.0 K/mm3 03/15/21 23:42 Promyelocytes # 0.0 K/mm3 03/15/21 23:42 Blast Cells # 0.0 K/mm3 03/15/21 23:42 Hypersegmented Neuts Not Reportable 03/15/21 23:42 Hyposegmented Neuts Not Reportable 03/15/21 23:42 Hypogranular Neuts Not Reportable 03/15/21 23:42 Smudge Cells Not Reportable 03/15/21 23:42 Toxic Granulation Not Reportable 03/15/21 23:42 Toxic Vacuolation Not Reportable 03/15/21 23:42 Dohle Bodies Not Reportable 03/15/21 23:42 Pelger-Huet Anomaly Not Reportable 03/15/21 23:42 Khadar Rods Not Reportable 03/15/21 23:42 Platelet Estimate Not Reportable 03/15/21 23:42 Clumped Platelets Not Reportable 03/15/21 23:42 Plt Clumps, EDTA Not Reportable 03/15/21 23:42 Large Platelets Not Reportable 03/15/21 23:42 Giant Platelets Not Reportable 03/15/21 23:42 Platelet Satelliting Not Reportable 03/15/21 23:42 Plt Morphology Comment Not Reportable 03/15/21 23:42 RBC Morphology Not Reportable 03/15/21 23:42 Dimorphic RBCs Not Reportable 03/15/21 23:42 Polychromasia Not Reportable 03/15/21 23:42 Hypochromasia Rare 03/15/21 23:42 Poikilocytosis Not Reportable 03/15/21 23:42 Anisocytosis Rare 03/15/21 23:42 Microcytosis Not Reportable 03/15/21 23:42 Macrocytosis Not Reportable 03/15/21 23:42 Spherocytes Not Reportable 03/15/21 23:42 Pappenheimer Bodies Not Reportable 03/15/21 23:42 Sickle Cells Not Reportable 03/15/21 23:42 Target Cells Not Reportable 03/15/21 23:42 Tear Drop Cells Not Reportable 03/15/21 23:42 Ovalocytes Not Reportable 03/15/21 23:42 Helmet Cells Not Reportable 03/15/21 23:42 [place] Bodies Not Reportable 03/15/21 23:42 [place] Rings Not Reportable 03/15/21 23:42 Meghan Cells Not Reportable 03/15/21 23:42 Bite Cells Not Reportable 03/15/21 23:42 Crenated Cell Not Reportable 03/15/21 23:42 Elliptocytes Not Reportable 03/15/21 23:42 Acanthocytes (Spur) Not Reportable 03/15/21 23:42 Rouleaux Not Reportable 03/15/21 23:42 Hemoglobin C Crystals Not Reportable 03/15/21 23:42 Schistocytes Not Reportable 03/15/21 23:42 Malaria parasites Not Reportable 03/15/21 23:42 Jason Bodies Not Reportable 03/15/21 23:42 Hem Pathologist Commnt Sent to pathology 03/15/21 23:42 PT 16.6 Sec. (12.2-14.9) H 03/15/21 23:42 INR 1.21 (0.87-1.13) H 03/15/21 23:42 APTT 26.4 Sec. (24.2-36.6) 03/15/21 23:42 D-Dimer > 74662 ng/mlDDU (0-234) H 03/15/21 00:02 Creatinine 2.9 mg/dL (0.6-1.2) H 03/15/21 23:42 Lactic Acid 5.90 mmol/L (0.7-2.0) H* 03/16/21 05:33 AST 88 units/L (5-40) H 03/15/21 23:42 ALT 28 units/L (7-56) 03/15/21 23:42 Alkaline Phosphatase 257 units/L (35-129) H 03/15/21 23:42 Urine WBC (Auto) > 182.0 /HPF (0.0-6.0) H 03/15/21 Unknown Urine RBC (Auto) > 182.0 /HPF (0.0-6.0) 03/15/21 Unknown Past History Past Medical History: No medical history Past Surgical History: No surgical history Social history: no significant social history Family history: no significant family history Medications and Allergies Allergies Allergy/AdvReac Type Severity Reaction Status Date / Time No Known Allergies Allergy Verified 08/20/20 08:11 Home Medications Medication Instructions Recorded Confirmed Last Taken Type Clindamycin [Clindamycin CAP] 300 mg PO Q8H #30 cap 08/20/20 Unknown Rx Ibuprofen [Motrin 800 MG tab] 800 mg PO Q8HR PRN #30 tablet 08/20/20 Unknown Rx traMADoL [Ultram 50 MG tab] 50 mg PO Q6HR PRN #12 tablet 08/20/20 Unknown Rx Active Meds: Active Medications Acetaminophen (Acetaminophen 325 Mg Tab) 650 mg PO Q4H PRN PRN Reason: Pain MILD(1-3)/Fever >100.5/MOY Sodium Chloride (Nacl 0.9% 1000 Ml) 1,000 mls @ 125 mls/hr IV DIRECT JANIE Last Admin: 03/16/21 09:22 Dose: 125 mls/hr Documented by: Ceftriaxone Sodium (Rocephin/Ns 2 Gm/100 Ml) 2 gm in 100 mls @ 200 mls/hr IV Q24HR@2200 JANIE Magnesium Hydroxide (Magnesium Hydroxide (Mom) Oral Liqd Udc) 30 ml PO Q4H PRN PRN Reason: Constipation Morphine Sulfate (Morphine 2 Mg/1 Ml Inj) 2 mg IV Q4H PRN PRN Reason: Pain, Moderate (4-6) Morphine Sulfate (Morphine 4 Mg/1 Ml Inj) 4 mg IV Q4H PRN PRN Reason: Pain , Severe (7-10) Ondansetron HCl (Ondansetron 4 Mg/2 Ml Inj) 4 mg IV Q8H PRN PRN Reason: Nausea And Vomiting Sodium Chloride (Sodium Chloride 0.9% 10 Ml Flush Syringe) 10 ml IV BID JANIE Sodium Chloride (Sodium Chloride 0.9% 10 Ml Flush Syringe) 10 ml IV PRN PRN PRN Reason: LINE FLUSH Exam - Constitutional Vitals: Last Vital Signs Temp 98.5 F 03/16/21 09:10 Pulse 91 H 03/16/21 09:10 Resp 20 03/16/21 09:10 BP 122/68 03/16/21 09:10 Pulse Ox 98 03/16/21 09:10 Results - Labs lab Results: Laboratory Results - last 24 hr 03/15/21 03/15/21 03/15/21 00:02 23:42 23:42 WBC 292.3 H* RBC 3.64 L Hgb 9.8 L Hct 30.4 MCV 84 MCH 27 L MCHC 32 RDW 17.9 H Plt Count 57 L Lymph % (Auto) Lining Stamper Lymph # (Auto) Lining Stamper Add Manual Diff Complete Total Counted 100 Seg Neutrophils % Lining Stamper Seg Neuts % (Manual) 7.0 L Lymphocytes % (Manual) 70.0 H Monocytes % (Manual) 3.0 Blast Cells % 20.0 Nucleated RBC % Not Reportable Seg Neutrophils # Man 20.5 H Band Neutrophils # 0.0 Lymphocytes # (Manual) 204.6 H Abs React Lymphs (Man) 0.0 Monocytes # (Manual) 8.8 H Eosinophils # (Manual) 0.0 Basophils # (Manual) 0.0 Metamyelocytes # 0.0 Myelocytes # 0.0 Promyelocytes # 0.0 Blast Cells # 0.0 Hypersegmented Neuts Not Reportable Hyposegmented Neuts Not Reportable Hypogranular Neuts Not Reportable Smudge Cells Not Reportable Toxic Granulation Not Reportable Toxic Vacuolation Not Reportable Dohle Bodies Not Reportable Pelger-Huet Anomaly Not Reportable Khadar Rods Not Reportable Platelet Estimate Not Reportable Clumped Platelets Not Reportable Plt Clumps, EDTA Not Reportable Large Platelets Not Reportable Giant Platelets Not Reportable Platelet Satelliting Not Reportable Plt Morphology Comment Not Reportable RBC Morphology Not Reportable Dimorphic RBCs Not Reportable Polychromasia Not Reportable Hypochromasia Rare Poikilocytosis Not Reportable Anisocytosis Rare Microcytosis Not Reportable Macrocytosis Not Reportable Spherocytes Not Reportable Pappenheimer Bodies Not Reportable Sickle Cells Not Reportable Target Cells Not Reportable Tear Drop Cells Not Reportable Ovalocytes Not Reportable Helmet Cells Not Reportable [place] Bodies Not Reportable [place] Rings Not Reportable Meghan Cells Not Reportable Bite Cells Not Reportable Crenated Cell Not Reportable Elliptocytes Not Reportable Acanthocytes (Spur) Not Reportable Rouleaux Not Reportable Hemoglobin C Crystals Not Reportable Schistocytes Not Reportable Malaria parasites Not Reportable Jason Bodies Not Reportable Hem Pathologist Commnt Sent to pathology PT INR APTT D-Dimer > 09422 H Sodium 140 Potassium 5.2 H Chloride 98.1 Carbon Dioxide 20 L Anion Gap 27 BUN 20 H Creatinine 2.9 H Estimated GFR 24 BUN/Creatinine Ratio 7 Glucose 87 Lactic Acid Calcium 9.8 Total Bilirubin 0.60 AST 88 H ALT 28 Alkaline Phosphatase 257 H Total Protein 7.7 Albumin 3.9 Albumin/Globulin Ratio 1.0 Lipase 21 Urine Color Urine WBC (Auto) Urine RBC (Auto) Urine HCG, Qual 03/15/21 03/15/21 03/15/21 23:42 23:42 Unknown WBC RBC Hgb Hct MCV MCH MCHC RDW Plt Count Lymph % (Auto) Lymph # (Auto) Add Manual Diff Total Counted Seg Neutrophils % Seg Neuts % (Manual) Lymphocytes % (Manual) Monocytes % (Manual) Blast Cells % Nucleated RBC % Seg Neutrophils # Man Band Neutrophils # Lymphocytes # (Manual) Abs React Lymphs (Man) Monocytes # (Manual) Eosinophils # (Manual) Basophils # (Manual) Metamyelocytes # Myelocytes # Promyelocytes # Blast Cells # Hypersegmented Neuts Hyposegmented Neuts Hypogranular Neuts Smudge Cells Toxic Granulation Toxic Vacuolation Dohle Bodies Pelger-Huet Anomaly Khadar Rods Platelet Estimate Clumped Platelets Plt Clumps, EDTA Large Platelets Giant Platelets Platelet Satelliting Plt Morphology Comment RBC Morphology Dimorphic RBCs Polychromasia Hypochromasia Poikilocytosis Anisocytosis Microcytosis Macrocytosis Spherocytes Pappenheimer Bodies Sickle Cells Target Cells Tear Drop Cells Ovalocytes Helmet Cells [place] Bodies [place] Rings [place] Cells Bite Cells Crenated Cell Elliptocytes Acanthocytes (Spur) Rouleaux Hemoglobin C Crystals Schistocytes Malaria parasites Jason Bodies Hem Pathologist Commnt PT 16.6 H INR 1.21 H APTT 26.4 D-Dimer Sodium Potassium Chloride Carbon Dioxide Anion Gap BUN Creatinine Estimated GFR BUN/Creatinine Ratio Glucose Lactic Acid 8.60 H* Calcium Total Bilirubin AST ALT Alkaline Phosphatase Total Protein Albumin Albumin/Globulin Ratio Lipase Urine Color Bloody Urine WBC (Auto) > 182.0 H Urine RBC (Auto) > 182.0 Urine HCG, Qual Negative 03/16/21 03/16/21 00:36 05:33 WBC RBC Hgb Hct MCV MCH MCHC RDW Plt Count Lymph % (Auto) Lymph # (Auto) Add Manual Diff Total Counted Seg Neutrophils % Seg Neuts % (Manual) Lymphocytes % (Manual) Monocytes % (Manual) Blast Cells % Nucleated RBC % Seg Neutrophils # Man Band Neutrophils # Lymphocytes # (Manual) Abs React Lymphs (Man) Monocytes # (Manual) Eosinophils # (Manual) Basophils # (Manual) Metamyelocytes # Myelocytes # Promyelocytes # Blast Cells # Hypersegmented Neuts Hyposegmented Neuts Hypogranular Neuts Smudge Cells Toxic Granulation Toxic Vacuolation Dohle Bodies Pelger-Huet Anomaly Khadar Rods Platelet Estimate Clumped Platelets Plt Clumps, EDTA Large Platelets Giant Platelets Platelet Satelliting Plt Morphology Comment RBC Morphology Dimorphic RBCs Polychromasia Hypochromasia Poikilocytosis Anisocytosis Microcytosis Macrocytosis Spherocytes Pappenheimer Bodies Sickle Cells Target Cells Tear Drop Cells Ovalocytes Helmet Cells [place] Bodies [place] Rings Meghan Cells Bite Cells Crenated Cell Elliptocytes Acanthocytes (Spur) Rouleaux Hemoglobin C Crystals Schistocytes Malaria parasites Jason Bodies Hem Pathologist Commnt PT INR APTT D-Dimer Sodium Potassium Chloride Carbon Dioxide Anion Gap BUN Creatinine Estimated GFR BUN/Creatinine Ratio Glucose Lactic Acid 8.00 H* 5.90 H* Calcium Total Bilirubin AST ALT Alkaline Phosphatase Total Protein Albumin Albumin/Globulin Ratio Lipase Urine Color Urine WBC (Auto) Urine RBC (Auto) Urine HCG, Qual
[2021-03-16 10:25] LABS: Hematocrit 27.1 % (30.3-42.9); Hemoglobin 8.9 gm/dl (10.1-14.3); Mean Corpuscular HGB Conc 33 % (30-34); Mean Corpuscular Volume 83 fl (79-97); Red Blood Count 3.26 M/mm3 (3.65-5.03); Red Cell Distribution Width 17.9 % (13.2-15.2)
[2021-03-16 10:46] LABS: Calcium 8.5 mg/dL (8.4-10.2)
[2021-03-16 11:12] LABS: Uric Acid 17.2 mg/dL (3.5-7.6)
--- NOTE | 2021-03-16 11:27 | Ultrasound Report ---
ULTRASOUND RENAL INDICATION: Acute renal failure. COMPARISON: No relevant prior imaging study available. FINDINGS: RIGHT KIDNEY: Size: 14 cm. Echogenicity: Increased. Cortical thickness: Normal. Stones: None. Hydronephrosis: None. Cyst or mass: None. LEFT KIDNEY: Size: 16 cm. Echogenicity: Increased. Cortical thickness: Normal. Stones: None. Hydronephrosis: None. Cyst or mass: None. Urinary Bladder: No significant abnormality. Free Fluid: None. Additional Findings: None. IMPRESSION 1. Bilateral enlarged echogenic kidneys suggesting acute medical renal disease.. Signer Name: Nicanor Portillo MD Signed: 03/16/2021 11:22 AM Workstation Name: [id number]
[2021-03-16 11:45] LABS: Platelet Count 39 K/mm3 (140-440)
--- NOTE | 2021-03-16 13:10 | Electrocardiograph Report ---
[facility] Test Date: 2021-03-16 Test Time: 00:53:10 Pat Name: DOMO FERNANDEZ Department: Room: A471 1 Gender: F Parking Lot Attendant: : 1995 Requested By: JIM MONTES Order Number: [id number] Reading MD: Iveth Schultz Measurements Intervals [place] Rate: 103 P: 65 WV: 116 QRS: -5 QRSD: 76 T: 73 QT: 325 QTc: 425 Interpretive Statements Sinus tachycardia Nonspecific T wave abnormality No previous ECG available for comparison Electronically Signed On 03-16-2021 13:09:53 EST by Iveth Schultz
[2021-03-16] MEDS ORDERED: RASBURICASE IV SCH (14:30)
[2021-03-16] MEDS ORDERED: SODIUM CHLORIDE 0.9% IV SCH (14:30)
--- NOTE | 2021-03-16 14:36 | Discharge Summary ---
Providers - Providers Date of Admission: 03/16/21 03:07 Date of discharge: 03/16/21 Attending physician: NOAH RODRIGUEZ 03/16/21 03:07 Consult to Physician [CONS] Routine Comment: Consulting Provider: LUZ TRAN Physician Instructions: Reason For Exam: Acute Renal Failure 03/16/21 03:17 Consult to Physician [CONS] Routine Comment: Consulting Provider: JIM RODRIGUEZ Physician Instructions: Reason For Exam: Thrombocytopenia,Leucocytosis Primary care physician: HOGSHEAD FILLER Hospitalization Condition: Stable Hospital course: 25-year-old -Citizen Of [place] female with no significant past medical history presents to the emergency room complaining of left flank pain which has been ongoing for about 3 weeks. She has had associated nausea, vomiting and diarrhea. She denies any fever or chills, denies any bright red blood per rectum and denies any melena. She denies any hematuria or dysuria. chest x-ray reveals:1. Mildly enlarged cardiomediastinal silhouette. 2. Possible splenomegaly. Labs shows a leukocytosis of 292.3, platelet count of 57, hemoglobin of 9.8, lactic acid of 8.6, BUN of 20 and creatinine of 2.9. Urinalysis was significant for leukocytes greater than 182. D-dimer greater than 10,000 Patient was admitted to the hospital, hematology and oncology was consulted Hematology recommended immediate transfer to [facility] as patient might have acute leukemia Patient was accepted to [facility] by Dr. Vamshi Hirsch Patient will be transferred to [facility] when bed available before transfer ordered for STAT LABS to include repeat CBC, LDH, uric acid, fibrinogen, flow cytometry, Elitek 3mg IV x 1, due to tumor lysis syndrome. 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 Absent: scleral icterus ENT: hearing intact, clear oral mucosa, dentition normal - Neck Neck: Present: supple, normal ROM - Respiratory Respiratory effort: normal Respiratory: bilateral: CTA - Cardiovascular Rhythm: regular Heart Sounds: Present: S1 & S2. Absent: gallop, systolic murmur, diastolic murmur, rub, click - Extremities Extremities: no ischemia, pulses intact, pulses symmetrical, No edema, normal temperature, normal color, Full ROM Peripheral Pulses: within normal limits - Abdominal General gastrointestinal: Present: soft, tender (Tenderness left Flank), non- distended, normal bowel sounds. Absent: mass - Integumentary Integumentary: Present: clear, warm, dry. Absent: rash - Musculoskeletal Musculoskeletal: strength equal bilaterally - Psychiatric Psychiatric: appropriate mood/affect, intact judgment & insight, memory intact, cooperative - Neurologic Neurologic: CNII-XII intact, no focal deficits, moves all extremities - Constitutional Vitals: Temp Pulse Resp BP Pulse Ox 97.1 F L 104 H 20 133/85 97 03/16/21 11:35 03/16/21 11:35 03/16/21 11:35 03/16/21 11:35 03/16/21 11:35 Plan Activity: fall precautions Diet: regular Follow up with: PRIMARY CARE, [Primary Care Provider] - 7 Days
[2021-03-16] MEDS: HYDROmorphone 1 MG/1 ML INJ IV PRN (15:33)
--- NOTE | 2021-03-16 17:30 | Consultation ---
History of Present Illness - Reason for Consult Consult date: 03/16/21 acute renal failure - History of Present Illness This is a 25-year-old woman who presents with 3 week history of left flank pain that is associated with nausea and vomiting. Workup in the emergency department was notable for severe leukocytosis and acute kidney injury. Nephrology was consulted for further management of acute kidney injury. Patient denies personal or family history of kidney disease. She denies hematuria, dysuria and history of kidney stones. Past History Past Medical History: No medical history Past Surgical History: No surgical history Social history: no significant social history Family history: no significant family history Medications and Allergies Allergies Allergy/AdvReac Type Severity Reaction Status Date / Time No Known Allergies Allergy Verified 03/16/21 14:48 Home Medications Medication Instructions Recorded Confirmed Last Taken Type Naproxen Sodium [All Day Pain 440 mg PO BID PRN 03/16/21 03/16/21 03/09/21 History Relief] Active Meds: Active Medications Acetaminophen (Acetaminophen 325 Mg Tab) 650 mg PO Q4H PRN PRN Reason: Pain MILD(1-3)/Fever >100.5/MOY Hydromorphone HCl (Hydromorphone 1 Mg/1 Ml Inj) 2 mg IV Q4H PRN PRN Reason: Pain , Severe (7-10) Last Admin: 03/16/21 15:33 Dose: 2 mg Documented by: Sodium Chloride (Nacl 0.9% 1000 Ml) 1,000 mls @ 125 mls/hr IV DIRECT JANIE Last Admin: 03/16/21 09:22 Dose: 125 mls/hr Documented by: Ceftriaxone Sodium (Rocephin/Ns 2 Gm/100 Ml) 2 gm in 100 mls @ 200 mls/hr IV Q24HR@2200 [facility] Rasburicase 1.5 mg/ Sodium (Chloride) 50 mls @ 100 mls/hr IV ONCE@1430 [facility] Stop: 03/16/21 18:30 Last Admin: 03/16/21 13:49 Dose: 100 mls/hr Documented by: Magnesium Hydroxide (Magnesium Hydroxide (Mom) Oral Liqd Udc) 30 ml PO Q4H PRN PRN Reason: Constipation Morphine Sulfate (Morphine 2 Mg/1 Ml Inj) 2 mg IV Q4H PRN PRN Reason: Pain, Moderate (4-6) Ondansetron HCl (Ondansetron 4 Mg/2 Ml Inj) 4 mg IV Q8H PRN PRN Reason: Nausea And Vomiting Sodium Chloride (Sodium Chloride 0.9% 10 Ml Flush Syringe) 10 ml IV BID JANIE Sodium Chloride (Sodium Chloride 0.9% 10 Ml Flush Syringe) 10 ml IV PRN PRN PRN Reason: LINE FLUSH Review of Systems Constitutional: no fever, no chills Ears, nose, mouth and throat: no nasal congestion, no nasal discharge Cardiovascular: no chest pain, no shortness of breath Respiratory: no cough, no dyspnea on exertion Gastrointestinal: abdominal pain, nausea, vomiting Musculoskeletal: no muscle weakness, no muscle cramps Integumentary: no rash, no pruritis Neurological: no weakness, no parathesias Psychiatric: no anxiety, no paranoia Endocrine: no polydipsia, no polyuria Hematologic/Lymphatic: easy bruising, easy bleeding Exam - Vital Signs Vital signs: Vital Signs Temp Pulse Resp BP Pulse Ox 99.3 F 142 H 17 134/90 99 03/15/21 22:26 03/15/21 22:26 03/15/21 22:26 03/15/21 22:26 03/15/21 22:26 - Physical Exam Narrative exam: General: No acute distress HEENT: Oral mucosa moist Neck: Supple, no JVD Chest: Clear to auscultation bilaterally Heart: RRR, S1 and S2, no pericardial rub Abdomen: Soft, nontender, no renal bruit. Left flank tenderness on percussion Extremity: No peripheral cyanosis, edema Neurological: Alert, awake, no asterixis Dermatology: No skin rash Psych: No agitation Musculoskeletal: No joint effusion Results - Lab Results 03/16/21 09:27 03/16/21 09:27 Most recent lab results Calcium 8.5 mg/dL (8.4-10.2) 03/16/21 09:27 Assessment and Plan Assessment Acute kidney injury Acidosis Hyperkalemia Hyperuricemia Tumor lysis syndrome Hematologic malignancy Recommendations Agree with rasburicase Consider adding allopurinol adjusted for renal function Start IV bicarb drip Noted imaging, enlargement might be secondary to acute disease. Cannot rule out infiltrative process. No ureteral obstruction per imaging. Check serologies given urinalysis Renally dose medications Avoid nephrotoxins Renal diet Agree with transfer to tertiary center
[2021-03-16] MEDS: ONDANSETRON 4 MG/2 ML INJ IV PRN (17:33)
[2021-03-16] MEDS ORDERED: SODIUM BICARBONATE 150 MEQ in WATER FOR INJECTION (PF) 1,000 ML IV SCH (18:00)
--- NOTE | 2021-03-16 19:00 | Hem/Onc Progress Note ---
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 elitek for tumor lysis sydrome received iVF and pain meds through the day discussing transfer with [place]-I called [facility] data reviewed below Creatinine 2.9 on admission and elevated lactic acid 8 Chest xray c/w enlarged cardiomediastinal silhouette, and splenomegaly Abd CT c/w splenomegaly 14cm and enlarged lymph nodes DATA REVIEWED BELOW WBC 292.3 Plts 57 creat 2.9 70% lymphs IMP: T-ALL, new diagnosis severe high WBC count L flank pain due to ALL opiate requirement for pain tumor lysis syndrome with ARF low fibrinogen due to ALL PLAN: steroid pulse allopurinol, s/p elitek IVF opiate meds for pain awaiting transfer to [place] f/u creat and K soon cryo transfusion Laboratory Last Values WBC 236.2 K/mm3 (4.5-11.0) H* 03/16/21 09:27 Hct 27.1 % (30.3-42.9) L 03/16/21 09:27 Plt Count 39 K/mm3 (140-440) L 03/16/21 09:27 Seg Neuts % (Manual) 7.0 % (40.0-70.0) L 03/15/21 23:42 Lymphocytes % (Manual) 70.0 % (13.4-35.0) H 03/15/21 23:42 Monocytes % (Manual) 3.0 % (0.0-7.3) 03/15/21 23:42 Blast Cells % 20.0 % 03/15/21 23:42 PT 16.6 Sec. (12.2-14.9) H 03/15/21 23:42 INR 1.21 (0.87-1.13) H 03/15/21 23:42 APTT 26.4 Sec. (24.2-36.6) 03/15/21 23:42 Fibrinogen 123 mg/dl (211-480) L* 03/16/21 10:40 D-Dimer > 96979 ng/mlDDU (0-234) H 03/16/21 10:40 Sodium 139 mmol/L (137-145) 03/16/21 09:27 Potassium 5.6 mmol/L (3.6-5.0) H 03/16/21 09:27 Chloride 102.0 mmol/L (98-107) 03/16/21 09:27 Carbon Dioxide 21 mmol/L (22-30) L 03/16/21 09:27 Anion Gap 22 mmol/L 03/16/21 09:27 BUN 20 mg/dL (7-17) H 03/16/21 09:27 Creatinine 2.4 mg/dL (0.6-1.2) H 03/16/21 09:27 Estimated GFR 30 ml/min 03/16/21 09:27 BUN/Creatinine Ratio 8 % 03/16/21 09:27 Glucose 76 mg/dL (65-100) 03/16/21 09:27 Lactic Acid 5.90 mmol/L (0.7-2.0) H* 03/16/21 05:33 Uric Acid 17.2 mg/dL (3.5-7.6) H 03/16/21 09:27 AST 88 units/L (5-40) H 03/15/21 23:42 ALT 28 units/L (7-56) 03/15/21 23:42 Alkaline Phosphatase 257 units/L (35-129) H 03/15/21 23:42 Lactate Dehydrogenase 2433 units/L (91-180) H 03/16/21 09:27 Urine HCG, Qual Negative (Negative) 03/15/21 Unknown Objective - Constitutional Vitals: Last Vital Signs Temp 98.1 F 03/16/21 15:36 Pulse 104 H 03/16/21 15:36 Resp 20 03/16/21 15:36 BP 128/85 03/16/21 15:36 Pulse Ox 99 03/16/21 15:36 - Labs Lab Results: Laboratory Results - last 24 hr 03/15/21 03/15/21 03/15/21 00:02 23:42 23:42 WBC 292.3 H* RBC 3.64 L Hgb 9.8 L Hct 30.4 MCV 84 MCH 27 L MCHC 32 RDW 17.9 H Plt Count 57 L Lymph % (Auto) Track Grinder Operator Lymph # (Auto) Track Grinder Operator Add Manual Diff Complete Total Counted 100 Seg Neutrophils % Track Grinder Operator Seg Neuts % (Manual) 7.0 L Lymphocytes % (Manual) 70.0 H Monocytes % (Manual) 3.0 Blast Cells % 20.0 Nucleated RBC % Not Reportable Seg Neutrophils # Man 20.5 H Band Neutrophils # 0.0 Lymphocytes # (Manual) 204.6 H Abs React Lymphs (Man) 0.0 Monocytes # (Manual) 8.8 H Eosinophils # (Manual) 0.0 Basophils # (Manual) 0.0 Metamyelocytes # 0.0 Myelocytes # 0.0 Promyelocytes # 0.0 Blast Cells # 0.0 Pathologist Review Hypersegmented Neuts Not Reportable Hyposegmented Neuts Not Reportable Hypogranular Neuts Not Reportable Smudge Cells Not Reportable Toxic Granulation Not Reportable Toxic Vacuolation Not Reportable Dohle Bodies Not Reportable Pelger-Huet Anomaly Not Reportable Khadar Rods Not Reportable Platelet Estimate Not Reportable Clumped Platelets Not Reportable Plt Clumps, EDTA Not Reportable Large Platelets Not Reportable Giant Platelets Not Reportable Platelet Satelliting Not Reportable Plt Morphology Comment Not Reportable RBC Morphology Not Reportable Dimorphic RBCs Not Reportable Polychromasia Not Reportable Hypochromasia Rare Poikilocytosis Not Reportable Anisocytosis Rare Microcytosis Not Reportable Macrocytosis Not Reportable Spherocytes Not Reportable Pappenheimer Bodies Not Reportable Sickle Cells Not Reportable Target Cells Not Reportable Tear Drop Cells Not Reportable Ovalocytes Not Reportable Helmet Cells Not Reportable [place] Bodies Not Reportable [place] Rings Not Reportable Meghan Cells Not Reportable Bite Cells Not Reportable Crenated Cell Not Reportable Elliptocytes Not Reportable Acanthocytes (Spur) Not Reportable Rouleaux Not Reportable Hemoglobin C Crystals Not Reportable Schistocytes Not Reportable Malaria parasites Not Reportable Jason Bodies Not Reportable Hem Pathologist Commnt Sent to pathology PT INR APTT Fibrinogen D-Dimer > 98411 H Sodium 140 Potassium 5.2 H Chloride 98.1 Carbon Dioxide 20 L Anion Gap 27 BUN 20 H Creatinine 2.9 H Estimated GFR 24 BUN/Creatinine Ratio 7 Glucose 87 Lactic Acid Uric Acid Calcium 9.8 Total Bilirubin 0.60 AST 88 H ALT 28 Alkaline Phosphatase 257 H Lactate Dehydrogenase Total Protein 7.7 Albumin 3.9 Albumin/Globulin Ratio 1.0 Lipase 21 Urine Color Urine WBC (Auto) Urine RBC (Auto) Urine HCG, Qual 03/15/21 03/15/21 03/15/21 23:42 23:42 Unknown WBC RBC Hgb Hct MCV MCH MCHC RDW Plt Count Lymph % (Auto) Lymph # (Auto) Add Manual Diff Total Counted Seg Neutrophils % Seg Neuts % (Manual) Lymphocytes % (Manual) Monocytes % (Manual) Blast Cells % Nucleated RBC % Seg Neutrophils # Man Band Neutrophils # Lymphocytes # (Manual) Abs React Lymphs (Man) Monocytes # (Manual) Eosinophils # (Manual) Basophils # (Manual) Metamyelocytes # Myelocytes # Promyelocytes # Blast Cells # Pathologist Review Hypersegmented Neuts Hyposegmented Neuts Hypogranular Neuts Smudge Cells Toxic Granulation Toxic Vacuolation Dohle Bodies Pelger-Huet Anomaly Khadar Rods Platelet Estimate Clumped Platelets Plt Clumps, EDTA Large Platelets Giant Platelets Platelet Satelliting Plt Morphology Comment RBC Morphology Dimorphic RBCs Polychromasia Hypochromasia Poikilocytosis Anisocytosis Microcytosis Macrocytosis Spherocytes Pappenheimer Bodies Sickle Cells Target Cells Tear Drop Cells Ovalocytes Helmet Cells [place] Bodies [place] Rings Meghan Cells Bite Cells Crenated Cell Elliptocytes Acanthocytes (Spur) Rouleaux Hemoglobin C Crystals Schistocytes Malaria parasites Jason Bodies Hem Pathologist Commnt PT 16.6 H INR 1.21 H APTT 26.4 Fibrinogen D-Dimer Sodium Potassium Chloride Carbon Dioxide Anion Gap BUN Creatinine Estimated GFR BUN/Creatinine Ratio Glucose Lactic Acid 8.60 H* Uric Acid Calcium Total Bilirubin AST ALT Alkaline Phosphatase Lactate Dehydrogenase Total Protein Albumin Albumin/Globulin Ratio Lipase Urine Color Bloody Urine WBC (Auto) > 182.0 H Urine RBC (Auto) > 182.0 Urine HCG, Qual Negative 03/16/21 03/16/21 03/16/21 00:36 05:33 09:27 WBC 236.2 H* RBC 3.26 L Hgb 8.9 L Hct 27.1 L MCV 83 MCH 27 L MCHC 33 RDW 17.9 H Plt Count 39 L Lymph % (Auto) Lymph # (Auto) Add Manual Diff Total Counted Seg Neutrophils % Seg Neuts % (Manual) Lymphocytes % (Manual) Monocytes % (Manual) Blast Cells % Nucleated RBC % Seg Neutrophils # Man Band Neutrophils # Lymphocytes # (Manual) Abs React Lymphs (Man) Monocytes # (Manual) Eosinophils # (Manual) Basophils # (Manual) Metamyelocytes # Myelocytes # Promyelocytes # Blast Cells # Pathologist Review Hypersegmented Neuts Hyposegmented Neuts Hypogranular Neuts Smudge Cells Toxic Granulation Toxic Vacuolation Dohle Bodies Pelger-Huet Anomaly Khadar Rods Platelet Estimate Clumped Platelets Plt Clumps, EDTA Large Platelets Giant Platelets Platelet Satelliting Plt Morphology Comment RBC Morphology Dimorphic RBCs Polychromasia Hypochromasia Poikilocytosis Anisocytosis Microcytosis Macrocytosis Spherocytes Pappenheimer Bodies Sickle Cells Target Cells Tear Drop Cells Ovalocytes Helmet Cells [place] Bodies [place] Rings Meghan Cells Bite Cells Crenated Cell Elliptocytes Acanthocytes (Spur) Rouleaux Hemoglobin C Crystals Schistocytes Malaria parasites Jason Bodies Hem Pathologist Commnt PT INR APTT Fibrinogen D-Dimer Sodium Potassium Chloride Carbon Dioxide Anion Gap BUN Creatinine Estimated GFR BUN/Creatinine Ratio Glucose Lactic Acid 8.00 H* 5.90 H* Uric Acid Calcium Total Bilirubin AST ALT Alkaline Phosphatase Lactate Dehydrogenase Total Protein Albumin Albumin/Globulin Ratio Lipase Urine Color Urine WBC (Auto) Urine RBC (Auto) Urine HCG, Qual 03/16/21 03/16/21 03/16/21 09:27 09:27 10:40 WBC RBC Hgb Hct MCV MCH MCHC RDW Plt Count Lymph % (Auto) Lymph # (Auto) Add Manual Diff Total Counted Seg Neutrophils % Seg Neuts % (Manual) Lymphocytes % (Manual) Monocytes % (Manual) Blast Cells % Nucleated RBC % Seg Neutrophils # Man Band Neutrophils # Lymphocytes # (Manual) Abs React Lymphs (Man) Monocytes # (Manual) Eosinophils # (Manual) Basophils # (Manual) Metamyelocytes # Myelocytes # Promyelocytes # Blast Cells # Pathologist Review Hypersegmented Neuts Hyposegmented Neuts Hypogranular Neuts Smudge Cells Toxic Granulation Toxic Vacuolation Dohle Bodies Pelger-Huet Anomaly Khadar Rods Platelet Estimate Clumped Platelets Plt Clumps, EDTA Large Platelets Giant Platelets Platelet Satelliting Plt Morphology Comment RBC Morphology Dimorphic RBCs Polychromasia Hypochromasia Poikilocytosis Anisocytosis Microcytosis Macrocytosis Spherocytes Pappenheimer Bodies Sickle Cells Target Cells Tear Drop Cells Ovalocytes Helmet Cells [place] Bodies [place] Rings Imbler Cells Bite Cells Crenated Cell Elliptocytes Acanthocytes (Spur) Rouleaux Hemoglobin C Crystals Schistocytes Malaria parasites Jason Bodies Hem Pathologist Commnt PT INR APTT Fibrinogen 123 L* D-Dimer Sodium 139 Potassium 5.6 H Chloride 102.0 Carbon Dioxide 21 L Anion Gap 22 BUN 20 H Creatinine 2.4 H Estimated GFR 30 BUN/Creatinine Ratio 8 Glucose 76 Lactic Acid Uric Acid 17.2 H Calcium 8.5 Total Bilirubin AST ALT Alkaline Phosphatase Lactate Dehydrogenase 2433 H Total Protein Albumin Albumin/Globulin Ratio Lipase Urine Color Urine WBC (Auto) Urine RBC (Auto) Urine HCG, Qual 03/16/21 10:40 WBC RBC Hgb Hct MCV MCH MCHC RDW Plt Count Lymph % (Auto) Lymph # (Auto) Add Manual Diff Total Counted Seg Neutrophils % Seg Neuts % (Manual) Lymphocytes % (Manual) Monocytes % (Manual) Blast Cells % Nucleated RBC % Seg Neutrophils # Man Band Neutrophils # Lymphocytes # (Manual) Abs React Lymphs (Man) Monocytes # (Manual) Eosinophils # (Manual) Basophils # (Manual) Metamyelocytes # Myelocytes # Promyelocytes # Blast Cells # Pathologist Review Hypersegmented Neuts Hyposegmented Neuts Hypogranular Neuts Smudge Cells Toxic Granulation Toxic Vacuolation Dohle Bodies Pelger-Huet Anomaly Khadar Rods Platelet Estimate Clumped Platelets Plt Clumps, EDTA Large Platelets Giant Platelets Platelet Satelliting Plt Morphology Comment RBC Morphology Dimorphic RBCs Polychromasia Hypochromasia Poikilocytosis Anisocytosis Microcytosis Macrocytosis Spherocytes Pappenheimer Bodies Sickle Cells Target Cells Tear Drop Cells Ovalocytes Helmet Cells [place] Bodies [place] Rings Imbler Cells Bite Cells Crenated Cell Elliptocytes Acanthocytes (Spur) Rouleaux Hemoglobin C Crystals Schistocytes Malaria parasites Jason Bodies Hem Pathologist Commnt PT INR APTT Fibrinogen D-Dimer > 79031 H Sodium Potassium Chloride Carbon Dioxide Anion Gap BUN Creatinine Estimated GFR BUN/Creatinine Ratio Glucose Lactic Acid Uric Acid Calcium Total Bilirubin AST ALT Alkaline Phosphatase Lactate Dehydrogenase Total Protein Albumin Albumin/Globulin Ratio Lipase Urine Color Urine WBC (Auto) Urine RBC (Auto) Urine HCG, Qual Medications & Allergies - Medications Allergies/Adverse Reactions: Allergies No Known Allergies Allergy (Verified 03/16/21 14:48) Home Medications: Home Medications Medication Instructions Recorded Confirmed Last Taken Type Naproxen Sodium [All Day Pain 440 mg PO BID PRN 03/16/21 03/16/21 03/09/21 History Relief] Active Medications: Generic Name Dose Route Start Last Admin Trade Name Freq PRN Reason Stop Dose Admin Acetaminophen 650 mg 03/16/21 03:07 Acetaminophen 325 Mg Tab PO Q4H PRN Pain MILD(1-3)/Fever >100.5/MOY Hydromorphone HCl 2 mg 03/16/21 14:58 03/16/21 15:33 Hydromorphone 1 Mg/1 Ml Inj IV 2 mg Q4H PRN Administration Pain , Severe (7-10) Sodium Chloride 1,000 mls @ 125 mls/hr 03/16/21 03:15 03/16/21 18:00 Nacl 0.9% 1000 Ml IV 125 mls/hr DIRECT JANIE Administration Ceftriaxone Sodium 2 gm in 100 mls @ 200 mls/hr 03/16/21 22:00 Rocephin/Ns 2 Gm/100 Ml IV Q24HR@2200 JANIE Sodium Bicarbonate 150 meq/ 1,150 mls @ 100 mls/hr 03/16/21 18:00 Sterile Water IV 03/18/21 05:29 DIRECT JANIE Magnesium Hydroxide 30 ml 03/16/21 03:07 Magnesium Hydroxide (Mom) Oral Liqd Udc PO Q4H PRN Constipation Methylprednisolone Sodium Succinate 80 mg 03/16/21 19:00 Methylprednisolone Sod Succinate 125 Mg/2 Ml Inj IV 03/18/21 18:59 Q12H JANIE Morphine Sulfate 2 mg 03/16/21 03:07 Morphine 2 Mg/1 Ml Inj IV Q4H PRN Pain, Moderate (4-6) Ondansetron HCl 4 mg 03/16/21 03:07 03/16/21 17:33 Ondansetron 4 Mg/2 Ml Inj IV 4 mg Q8H PRN Administration Nausea And Vomiting Sodium Chloride 10 ml 03/16/21 10:00 Sodium Chloride 0.9% 10 Ml Flush Syringe IV BID JANIE Sodium Chloride 10 ml 03/16/21 03:07 Sodium Chloride 0.9% 10 Ml Flush Syringe IV PRN PRN LINE FLUSH
[2021-03-16 20:22] LABS: Calcium 8.2 mg/dL (8.4-10.2)
[2021-03-16] MEDS: allopurinoL 300 MG TAB PO SCH (21:35)
[2021-03-16] MEDS: methylPREDNISolone Sod Succinate 125 MG/2 ML INJ IV SCH (21:36)
[2021-03-16] MEDS ORDERED: cefTRIAXone/NS 2 GM/100 ML 2 GM/100 ML BAG IV SCH (22:00)
[2021-03-17] MEDS: HYDROmorphone 1 MG/1 ML INJ IV PRN (07:34)
[2021-03-17 08:50] VITALS: BP 111/71
[2021-03-17] MEDS ORDERED: SODIUM CHLORIDE 0.9% IV SCH (10:00)
[2021-03-17] MEDS ORDERED: RASBURICASE 1.5 MG IV ONE ×2 (10:00→11:23)
[2021-03-17] MEDS ORDERED: RASBURICASE IV SCH (10:00)
[2021-03-17] MEDS: allopurinoL 300 MG TAB PO SCH (10:37)
[2021-03-17] MEDS: methylPREDNISolone Sod Succinate 125 MG/2 ML INJ IV SCH (10:39)
[2021-03-17] MEDS: ONDANSETRON 4 MG/2 ML INJ IV PRN (10:42)
[2021-03-17 12:02] LABS: Mean Corpuscular HGB Conc 30 % (30-34); Mean Corpuscular Volume 88 fl (79-97); Red Blood Count 3.68 M/mm3 (3.65-5.03); Red Cell Distribution Width 17.6 % (13.2-15.2)
[2021-03-17 12:03] LABS: Hematocrit 32.2 % (30.3-42.9); Hemoglobin 9.7 gm/dl (10.1-14.3); Platelet Count 17 K/mm3 (140-440)
[2021-03-17 12:47] LABS: Calcium 7.1 mg/dL (8.4-10.2)
[2021-03-17] MEDS ORDERED: SODIUM CHLORIDE 0.9% 1000 ML 1,000 ML IV SCH (13:00)
== END 2021-03-17 12:52 | disposition home or self-care (01) | DRG 690 ==
LOC: ED 22:21 → 3A 03-16 03:07 → 4A 03-16 08:08
PROVIDERS: ADMIT Internal Medicine Geriatric Medicine; ATTEND Internal Medicine
PROC: 30233M1 Transfusion of Nonautologous Plasma Cryoprecipitate into Peripheral Vein, Percutaneous Approach (ICD-10-PCS; principal; 2021-03-17)
DX: N12 Tubulo-interstitial nephritis, not specified as acute or chronic (principal); E87.2 Acidosis; C94.80 Other specified leukemias not having achieved remission; D69.6 Thrombocytopenia, unspecified; R07.9 Chest pain, unspecified; E87.5 Hyperkalemia; E79.0 Hyperuricemia without signs of inflammatory arthritis and tophaceous disease; N17.9 Acute kidney failure, unspecified; D64.9 Anemia, unspecified; Z20.822 Contact with and (suspected) exposure to COVID-19
CPT/HCPCS: 36415; 71045; 74176; 76770; 80048; 80053; 81001; 81025; 82140; 83520; 83615; 83690; 84550; 85007; 85025; 85027; 85379; 85384; 85610; 85730; 86021; 86038; 86160; 86900; 86901; 86965; 87040; 87086; 93005; G0378; J3490; Q0162; J0696; J1170; J2270; J2405; J2783; J2930; J3010; J7030; P9012

== ENCOUNTER 2021-07-21 18:53 | Emergency (ER) | payer MEDICAID, OTHER ==
[2021-07-21 20:09] LABS: Hematocrit 24.5 % (30.3-42.9); Hemoglobin 8.3 gm/dl (10.1-14.3); Mean Corpuscular HGB Conc 34 % (30-34); Mean Corpuscular Volume 88 fl (79-97); Platelet Count 399 K/mm3 (140-440); Red Blood Count 2.79 M/mm3 (3.65-5.03); Red Cell Distribution Width 14.2 % (13.2-15.2)
[2021-07-21 20:35] LABS: Alanine Aminotransferase 96 units/L (7-56); Albumin 3.2 g/dL (3.9-5); BUN/Creatinine Ratio 15; Blood Urea Nitrogen 15 mg/dL (7-17); Calcium 8.6 mg/dL (8.4-10.2); Hemolysis Index 5
--- NOTE | 2021-07-21 21:03 | XRay Report ---
CHEST 2 VIEWS INDICATION / CLINICAL INFORMATION: chest pain. COMPARISON: 03/16/2021 FINDINGS: SUPPORT DEVICES: None. HEART / MEDIASTINUM: No significant abnormality. LUNGS / PLEURA: No significant pulmonary or pleural abnormality. No pneumothorax. ADDITIONAL FINDINGS: No significant additional findings. IMPRESSION: 1. No acute findings. Signer Name: Jose Enrique Robison DO Signed: 07/21/2021 8:58 PM Workstation Name: [id number]
[2021-07-21 21:20] LABS: Basophils % (Manual) 0 % (0.0-1.8); Eosinophils % (Manual) 0 % (0.0-4.3); RBC Morphology Normal; Total Cells Counted 100
[2021-07-21] MEDS ORDERED: MORPHINE 4 MG/1 ML INJ IV ONE (21:27)
[2021-07-21] MEDS ORDERED: ONDANSETRON 4 MG/2 ML INJ IV ONE (21:27)
[2021-07-21] MEDS ORDERED: ASPIRIN 325 MG TAB PO ONE (21:27)
--- NOTE | 2021-07-21 21:32 | Emergency Department Report ---
ED Chest Pain HPI - General Chief Complaint: Chest Pain Stated Complaint: CANCER PT/CHEST PAIN Time Seen by Provider: 07/21/21 21:07 Source: patient Mode of arrival: Ambulatory Limitations: No Limitations - History of Present Illness Initial Comments: 25 year old female with hx of leukemia currently on Chemo presents to ED with complaints of substernal chest pain. Patient states that the pain started suddenly around 4 PM this afternoon after taking a nap. Patient described the pain as sharp pain. She states that is worse with "everything" including taking a deep breath. She is unable to describe anything that makes it better. She states that she has been having nausea and vomiting since starting chemo but not any worse since she started with this chest pain today. She states that she is only vomited once early this morning today. She reports associated shortness of breath. She denies any URI symptoms or cough. She denies any abdominal pain, lower extremity swelling or calf pain. She denies any fever or chills. She has been vaccinated against COVID-19. She denies any history of tobacco use, alcohol abuse or illicit drug use. She denies any history of CAD or any other significant past medical history. She denies any family history of CAD. MD Complaint: chest pain -: This afternoon (around 4pm) Severity scale (0 -10): 10 - Related Data Home Medications Medication Instructions Recorded Confirmed Last Taken Naproxen Sodium [All Day Pain 440 mg PO BID PRN 03/16/21 03/16/21 03/09/21 Relief] Previous Rx's Medication Instructions Recorded Last Taken Type Famotidine [Pepcid] 20 mg PO BID #60 tablet 07/21/21 Unknown Rx HYDROcodone/APAP 5-325 [Rowe 1 each PO Q4HR PRN #10 tablet 07/21/21 Unknown Rx 5/325] Omeprazole 40 mg PO QHS #30 cap 07/21/21 Unknown Rx Ondansetron [Zofran Odt] 4 mg PO Q8HR #15 tab.rapdis 07/21/21 Unknown Rx Allergies Allergy/AdvReac Type Severity Reaction Status Date / Time No Known Allergies Allergy Verified 03/16/21 14:48 Heart Score - HEART Score History: Slightly suspicious EKG: Normal (sinus tach but otherwise normal) Age: < 45 Risk factors: 1-2 risk factors Troponin: < normal limit HEART Score: 1 - EKG Read Time Time EKG Completed: 19:03 EKG Read Time: 19:10 - Critical Actions Critical Actions: 0-3 pts:0.9-1.7%risk of adverse cardiac event.Candidate for discharge ED Review of Systems ROS: Stated complaint: CANCER PT/CHEST PAIN Other details as noted in HPI Comment: All other systems reviewed and negative Constitutional: no symptoms reported Eyes: denies: eye pain, eye discharge, vision change ENT: denies: ear pain, throat pain, dental pain, hearing loss, congestion Respiratory: shortness of breath. denies: cough, wheezing Cardiovascular: chest pain Gastrointestinal: nausea, vomiting. denies: constipation, hematemesis, melena Genitourinary: denies: urgency, dysuria, discharge, abnormal menses, dyspareunia Musculoskeletal: denies: back pain, joint swelling, arthralgia Skin: denies: rash, lesions, change in color, change in hair/nails, pruritus Neurological: denies: headache, weakness, numbness, paresthesias, confusion, abnormal gait, vertigo Psychiatric: denies: anxiety, depression, auditory hallucinations, visual hallucinations, homicidal thoughts, suicidal thoughts Hematological/Lymphatic: denies: easy bleeding, easy bruising, swollen glands ED Past Medical Hx - Past Medical History Hx Hypertension: No Hx Congestive Heart Failure: No Hx Diabetes: No Hx Deep Vein Thrombosis: No Hx Renal Disease: No Hx Sickle Cell Disease: No Hx Seizures: No Hx Asthma: No Hx COPD: No Hx HIV: No - Social History Smoking Status: Never Smoker - Medications Home Medications: Home Medications Medication Instructions Recorded Confirmed Last Taken Type Naproxen Sodium [All Day Pain 440 mg PO BID PRN 03/16/21 03/16/21 03/09/21 History Relief] Famotidine [Pepcid] 20 mg PO BID #60 tablet 07/21/21 Unknown Rx HYDROcodone/APAP 5-325 [Rowe 1 each PO Q4HR PRN #10 tablet 07/21/21 Unknown Rx 5/325] Omeprazole 40 mg PO QHS #30 cap 07/21/21 Unknown Rx Ondansetron [Zofran Odt] 4 mg PO Q8HR #15 tab.rapdis 07/21/21 Unknown Rx ED Physical Exam - General Limitations: No Limitations General appearance: alert, anxious, in distress (appears uncomfortably from pain, anxious and crying), obese - Head Head exam: Present: atraumatic, normocephalic, normal inspection - Eye Eye exam: Present: normal appearance, PERRL, EOMI Pupils: Present: normal accommodation - Neck Neck exam: Present: normal inspection, full ROM. Absent: meningismus - Respiratory Respiratory exam: Present: normal lung sounds bilaterally, chest wall tenderness (sternal and parasternal ). Absent: respiratory distress, wheezes, rales, rhonchi - Cardiovascular Cardiovascular Exam: Present: normal rhythm, tachycardia, normal heart sounds - GI/Abdominal GI/Abdominal exam: Present: soft. Absent: distended, tenderness, guarding, rebound - Extremities Exam Extremities exam: Present: normal inspection, full ROM. Absent: pedal edema, joint swelling, calf tenderness - Neurological Exam Neurological exam: Present: alert, oriented X3, CN II-XII intact, normal gait - Psychiatric Psychiatric exam: Present: normal affect, normal mood - Skin Skin exam: Present: intact ED Course Vital Signs 07/21/21 07/21/21 07/21/21 18:56 21:41 23:17 Temperature 98.1 F 98.6 F Pulse Rate 129 H 117 H Respiratory 18 16 18 Rate Blood Pressure 107/66 Blood Pressure 121/76 [Right] O2 Sat by Pulse 98 99 Oximetry ED Medical Decision Making - Lab Data Result diagrams: 07/21/21 19:49 07/21/21 19:49 - EKG Data EKG shows normal: sinus rhythm Rate: tachycardia (118) - EKG Data Interpretation: normal EKG - Radiology Data Radiology results: report reviewed interpreted by me: Patient: DOMO FERNANDEZ MR#: [id number] : 1995 Acct:[id number] Age/Sex: 25 / F ADM Date: 07/21/21 Loc: ED Attending Dr: Ordering Physician: AGUSTIN SANDERS Date of Service: 07/21/21 Procedure(s): CT angio chest Accession Number(s): [id number] cc: AGUSTIN SANDERS CTA CHEST WITH IV CONTRAST INDICATION / CLINICAL INFORMATION: Chest pain/SOB/hx leukemia. TECHNIQUE: Axial CT images were obtained through the chest after injection of 100 cc Omni 350 IV contrast. 3 plane MIP and/or 3D reconstructions were produced. All CT scans at this location are performed using CT dose reduction for ALARA by means of automated exposure control. COMPARISON: Chest radiograph earlier today FINDINGS: PULMONARY ARTERIES: No pulmonary emboli. THORACIC AORTA: No significant abnormality. HEART: No significant abnormality. CORONARY ARTERIES: No significant calcification. PLEURA: No pleural effusion. No pneumothorax. LYMPH NODES: No significant adenopathy. LUNGS: No acute air space or interstitial disease. ADDITIONAL FINDINGS: None. UPPER ABDOMEN: Marked hepatic steatosis with hepatomegaly. No acute finding in the visualized portion of the upper abdomen. SKELETAL STRUCTURES: No significant osseous abnormality. IMPRESSION: 1. No CT evidence for pulmonary embolism. 2. No acute pulmonary disease. 3. Hepatomegaly due to marked hepatic steatosis. Signer Name: Janet Johnson MD Signed: 07/21/2021 11:03 PM Workstation Name: [id number] Transcribed By: Dictated By: Janet Johnson MD Electronically Authenticated By: Janet Johnson MD Signed Date/Time: 07/21/212302 DD/ 99 TD/TT: Patient: DOMO FERNANDEZ MR#: [id number] : 1995 Acct:[id number] Age/Sex: 25 / F ADM Date: 07/21/21 Loc: ED Attending Dr: Ordering Physician: MARIA DEL CARMEN VARELA Date of Service: 07/21/21 Procedure(s): XR chest routine 2V Accession Number(s): [id number] cc: MARIA DEL CARMEN VARELA Fluoro Time In Minutes: CHEST 2 VIEWS INDICATION / CLINICAL INFORMATION: chest pain. COMPARISON: 03/16/2021 FINDINGS: SUPPORT DEVICES: None. HEART / MEDIASTINUM: No significant abnormality. LUNGS / PLEURA: No significant pulmonary or pleural abnormality. No pneumothorax. ADDITIONAL FINDINGS: No significant additional findings. IMPRESSION: 1. No acute findings. Signer Name: oJse Enrique Pereyra DO Signed: 07/21/2021 8:58 PM Workstation Name: [id number] Transcribed By: CHIN Dictated By: JOSE ENRIQUE PEREYRA DO Electronically Authenticated By: JOSE ENRIQUE PEREYRA DO Signed Date/Time: 07/21/212057 DD/ 57 TD/TT: - Medical Decision Making 2350: Patient states that her pain has improved after IV fluids and morphine. She is actually resting more comfortably on recliner and does not appear to be anxious or in any distress. She is not in any respiratory distress. She is currently not toxic or ill-appearing. She is neurologically intact and her gait is normal. Repeat vital signs shows improvement of her heart rate and her remaining vital signs are stable and she is afebrile. Work-up today reviewed --CBC shows leukopenia with a white count of 1.8 and anemia with a hemoglobin of 8 but this is likely related related to patient history of leukemia on chemo; CMP reviewed and shows no significant abnormality. Patient troponin was normal. EKG showed sinus tach but otherwise no STEMI or significant dysrhythmias. Chest x-ray was normal. CTA chest showed no PE or pneumonia or any acute abnormalities. Exact cause of patient pain at this time unclear, could be related to esophagitis/reflux but at this time there is low suspicion that this could be related to unstable angina, sepsis or any other acute emergent conditions warranting additional testing or admission. Discussed results with patient she will be given medications to help with symptoms but most importantly recommend she follows up with her oncologist next week. Patient expressed understanding agree with plan. Patient was stable at time of discharge. Critical care attestation.: If time is entered above; I have spent that time in minutes in the direct care of this critically ill patient, excluding procedure time. ED Disposition Clinical Impression: Nonspecific chest pain, Leukemia Disposition: 01 HOME / SELF CARE / HOMELESS Is pt being admited?: No Does the pt Need Aspirin: No Condition: Stable Instructions: Esophagitis, Nonspecific Chest Pain, Adult, [id number] Additional Instructions: I recommend that you take the Zofran as prescribed to help with any nausea and vomiting. Your symptoms could related to esophagitis/reflux and therefore I recommend that you take the Pepcid and omeprazole. Take the hydrocodone as prescribed to help with pain. Follow-up with your oncologist next week. Return to the ER if your symptoms changes or worsens in any way. Prescriptions: Omeprazole 40 mg PO QHS #30 cap HYDROcodone/APAP 5-325 [Rowe 5/325] 1 each PO Q4HR PRN #10 tablet PRN Reason: Pain Famotidine [Pepcid] 20 mg PO BID #60 tablet Ondansetron [Zofran Odt] 4 mg PO Q8HR #15 tab.rapdis Referrals: PRIMARY CARE, [Primary Care Provider] - 3-5 Days Time of Disposition: 23:29
--- NOTE | 2021-07-21 23:07 | Cat Scan Report ---
CTA CHEST WITH IV CONTRAST INDICATION / CLINICAL INFORMATION: Chest pain/SOB/hx leukemia. TECHNIQUE: Axial CT images were obtained through the chest after injection of 100 cc Omni 350 IV contrast. 3 hernesto ne MIP and/or 3D reconstructions were produced. All CT scans at this location are performed using CT dose reduction for ALARA by means of automated exposure control. COMPARISON: Chest radiograph earlier today FINDINGS: PULMONARY ARTERIES: No pulmonary emboli. THORACIC AORTA: No significant abnormality. HEART: No significant abnormality. CORONARY ARTERIES: No significant calcification. PLEURA: No pleural effusion. No pneumothorax. LYMPH NODES: No significant adenopathy. LUNGS: No acute air space or interstitial disease. ADDITIONAL FINDINGS: None. UPPER ABDOMEN: Marked hepatic steatosis with hepatomegaly. No acute finding in the visualized portion of the upper abdomen. SKELETAL STRUCTURES: No significant osseous abnormality. IMPRESSION: 1. No CT evidence for pulmonary embolism. 2. No acute pulmonary disease. 3. Hepatomegaly due to marked hepatic steatosis. Signer Name: Janet Johnson MD Signed: 07/21/2021 11:03 PM Workstation Name: [id number]
[2021-07-21 23:19] VITALS: BP 107/66
--- NOTE | 2021-07-23 09:01 | Electrocardiograph Report ---
[facility] Test Date: 2021-07-21 Test Time: 19:03:47 Pat Name: DOMO FERNANDEZ Department: Room: Gender: F Floor Helper: LAURA : 1995 Requested By: MARIA DEL CARMEN VARELA Order Number: [id number] Reading MD: Iveth Schultz Measurements Intervals [place] Rate: 118 P: 49 VT: 119 QRS: 9 QRSD: 65 T: 87 QT: QTc: 0 Interpretive Statements Sinus tachycardia Compared to ECG 03/16/2021 00:53:10 No significant change Electronically Signed On 07-23-2021 9:00:24 EDT by Iveth Schultz
== END 2021-07-21 23:50 | disposition home or self-care (01) ==
LOC: ED 18:53
DX: R07.9 Chest pain, unspecified (principal); C95.90 Leukemia, unspecified not having achieved remission
CPT/HCPCS: 36415; 71046; 71275; 80053; 84484; 84703; 85007; 85025; 93005; 96374; 96375; 99284; J2270; J2405; Q9967

== ENCOUNTER 2022-01-06 13:33 | Emergency (ER) | payer MEDICAID, OTHER ==
[2022-01-06] MEDS ORDERED: METOCLOPRAMIDE 10 MG/2 ML INJ IV ONE (20:24)
[2022-01-06] MEDS ORDERED: LACTATED RINGERS 2,000 ML IV ONE (20:24)
[2022-01-06] MEDS ORDERED: PANTOPRAZOLE 40 MG INJ IV ONE (20:24)
--- NOTE | 2022-01-06 20:25 | Emergency Department Report ---
ED General Adult HPI - General Chief complaint: Nausea/Vomiting/Diarrhea Stated complaint: SOB,VOMITTING Time Seen by Provider: 01/06/22 20:11 Source: patient, RN notes reviewed, old records reviewed Mode of arrival: Ambulatory Limitations: Physical Limitation - History of Present Illness Initial comments: The patient was evaluated in the emergency department for symptoms described in the history of present illness. He/she was evaluated in the context of the global COVID-19 pandemic, which necessitated consideration that the patient might be at risk for infection with the virus that causes COVID-19. Institutional protocols and algorithms that pertain to the evaluation of patients at risk for COVID-19 are in a state of rapid change based on inf ormation released by regulatory bodies including the CDC and federal and state organizations. These policies and algorithms were followed during the patient's care in the emergency department. Please note that these policies, procedures and recommendations changed on a rapid basis. During the history and physical examination, I am chaperoned by nurse Hoda This is a 26-year-old female with a reported diagnosis of leukemia. Her oncologist is Dr. Vanessa Austin at [facility]. The patient presents to the ER today with a complaint of shortness of breath, lightheadedness, generalized weakness, nausea, vomiting, inability to tolerate liquid feeds. She denies travel, surgery, immobilization, DVT and pulmonary embolism risk factors. Patient has been on chemotherapy since April. She reports multiple rounds of chemotherapy. She does not specifically know what chemotherapeutic agents that she takes. She believes her chemotherapeutic agents have not been recently changed. No dry mouth, no rectal pain, no dysuria. Symptoms worsen with physical exertion, sitting up. They decreased w ith rest, and with laying flat. Patient has no holiness objections to receiving a packed red blood cell transfusion, if she still requires. The patient further reports that she feels like she has low blood counts, and feels like her symptoms today are similar to prior episodes of symptomatic anem ia. Of note, this patient has also had a history of tumor lysis syndrome. Patient also reports multiple episodes of nausea and vomiting, with essentially being unable to tolerate food. She drank a few cups of water today. -: Gradual, days(s) Consistency: constant Improves with: other Worsens with: other - Related Data Previous Rx's Medication Instructions Recorded Last Taken Type Famotidine [Pepcid] 20 mg PO BID #60 tablet 07/21/21 Unknown Rx HYDROcodone/APAP 5-325 [[place] 1 each PO Q4HR PRN #10 tablet 07/21/21 Unknown Rx 5/325] Omeprazole 40 mg PO QHS #30 cap 07/21/21 Unknown Rx Ondansetron [Zofran Odt] 4 mg PO Q8HR #15 tab.rapdis 07/21/21 Unknown Rx Rdaha Root [Radha] 250 mg PO QID PRN #30 capsule 01/06/22 Unknown Rx Ondansetron [Zofran Odt] 4 mg PO Q8HR PRN #20 tab.rapdis 01/06/22 Unknown Rx Promethazine [Phenergan] 25 mg MS Q6HR PRN #15 supp.rect 01/06/22 Unknown Rx Allergies Allergy/AdvReac Type Severity Reaction Status Date / Time No Known Allergies Allergy Verified 01/06/22 14:41 ED Review of Systems ROS: Stated complaint: SOB,VOMITTING Other details as noted in HPI Constitutional: malaise, weakness. denies: fever Eyes: denies: eye discharge ENT: denies: congestion Respiratory: shortness of breath. denies: cough Cardiovascular: dyspnea on exertion, other (Lightheadedness and near syncope). denies: chest pain Gastrointestinal: nausea, vomiting. denies: abdominal pain, diarrhea, hematemesis, melena, hematochezia Genitourinary: denies: dysuria Neurological: weakness ED Past Medical Hx - Past Medical History Hx Hypertension: No Hx Congestive Heart Failure: No Hx Diabetes: No Hx Deep Vein Thrombosis: No Hx Renal Disease: No Hx of Cancer: Yes Hx Sickle Cell Disease: No Hx Seizures: No Hx Asthma: No Hx COPD: No Hx HIV: No Additional medical history: LEUKEMNIA - Surgical History Past Surgical History?: No - Social History Smoking Status: Never Smoker - Medications Home Medications: Home Medications Medication Instructions Recorded Confirmed Last Taken Type Famotidine [Pepcid] 20 mg PO BID #60 tablet 07/21/21 Unknown Rx HYDROcodone/APAP 5-325 [[place] 1 each PO Q4HR PRN #10 tablet 07/21/21 Unknown Rx 5/325] Omeprazole 40 mg PO QHS #30 cap 07/21/21 Unknown Rx Ondansetron [Zofran Odt] 4 mg PO Q8HR #15 tab.rapdis 07/21/21 Unknown Rx Radha Root [Radha] 250 mg PO QID PRN #30 capsule 01/06/22 Unknown Rx Ondansetron [Zofran Odt] 4 mg PO Q8HR PRN #20 tab.rapdis 01/06/22 Unknown Rx Promethazine [Phenergan] 25 mg MS Q6HR PRN #15 supp.rect 01/06/22 Unknown Rx ED Physical Exam - General Limitations: No Limitations, Physical Limitation General appearance: alert, anxious - Head Head exam: Present: atraumatic, normocephalic - Eye Eye exam: Present: normal appearance, EOMI. Absent: nystagmus - ENT ENT exam: Present: normal exam, mucous membranes dry, mucous membranes moist, normal external ear exam - Neck Neck exam: Present: normal inspection, full ROM. Absent: tenderness, meningismus - Respiratory Respiratory exam: Present: normal lung sounds bilaterally. Absent: respiratory distress, wheezes, rales, rhonchi, stridor, decreased breath sounds - Cardiovascular Cardiovascular Exam: Present: normal rhythm, tachycardia, normal heart sounds. Absent: bradycardia, irregular rhythm, systolic murmur, diastolic murmur, rubs, gallop - GI/Abdominal GI/Abdominal exam: Present: soft. Absent: distended, tenderness, guarding, rebound, rigid, pulsatile mass - Extremities Exam Extremities exam: Present: normal inspection, full ROM, other (2+ pulses noted in the bilateral upper and lower extremities. There is no palpable cord. negative Homans sign. Muscular compartments are soft. The pelvis is stable.). Absent: pedal edema, calf tenderness - Back Exam Back exam: Present: normal inspection. Absent: tenderness, CVA tenderness (R), CVA tenderness (L), paraspinal tenderness, vertebral tenderness - Neurological Exam Neurological exam: Present: alert, oriented X3, other (No facial droop. Tongue midline. Extraocular movements intact bilaterally. Facial sensation intact to light touch in V1, V2, V3 distribution bilaterally. 5 and a 5 strength in 4 extremities. Sensation intact to light touch in 4 extremities.). Absent: motor sensory deficit - Psychiatric Psychiatric exam: Present: anxious - Skin Skin exam: Present: warm, dry, intact, normal color. Absent: rash ED Course Vital Signs 01/06/22 01/06/22 01/06/22 14:45 20:38 20:45 Temperature 98.4 F Pulse Rate 129 H 110 H 111 H Respiratory 20 19 18 Rate Blood Pressure 124/77 107/64 O2 Sat by Pulse 98 Oximetry 01/06/22 01/06/22 01/06/22 21:01 21:15 21:31 Temperature Pulse Rate 100 H 99 H 109 H Respiratory 20 24 17 Rate Blood Pressure 107/64 103/62 103/62 O2 Sat by Pulse 98 99 95 Oximetry 01/06/22 01/06/22 01/06/22 21:45 22:01 22:15 Temperature Pulse Rate 133 H 101 H 115 H Respiratory 22 20 16 Rate Blood Pressure 99/72 99/72 104/56 O2 Sat by Pulse 85 Oximetry 01/06/22 01/06/22 01/06/22 22:31 22:45 23:01 Temperature Pulse Rate 111 H 102 H 120 H Respiratory 24 26 H 18 Rate Blood Pressure 104/56 95/56 95/56 O2 Sat by Pulse 99 100 Oximetry 01/06/22 01/06/22 01/06/22 23:20 23:31 23:45 Temperature Pulse Rate 91 H 96 H 94 H Respiratory 21 23 21 Rate Blood Pressure 95/56 98/53 O2 Sat by Pulse 100 100 100 Oximetry 01/06/22 01/07/22 01/07/22 23:51 00:01 00:15 Temperature Pulse Rate 86 91 H 95 H Respiratory 22 21 21 Rate Blood Pressure 98/53 98/53 98/55 O2 Sat by Pulse 98 99 100 Oximetry 01/07/22 01/07/22 01/07/22 00:31 00:45 01:01 Temperature Pulse Rate 91 H 100 H 86 Respiratory 22 23 21 Rate Blood Pressure 98/55 100/55 100/55 O2 Sat by Pulse 99 100 100 Oximetry 01/07/22 01:15 Temperature Pulse Rate 85 Respiratory 18 Rate Blood Pressure 102/54 O2 Sat by Pulse 100 Oximetry - Reevaluation(s) Reevaluation #1: 01/06/22 20:52 Differential diagnosis, include but not limited to: Orthostasis, dehydration, electrolyte derangement, renal insufficiency, tumor lysis syndrome, symptomatic anemia Assessment and plan: 26-year-old female who is an active leukemia patient receiving chemotherapy, presenting with shortness of breath, dizziness, lightheadedness, with a GCS of 15. Her tachycardia is likely secondary to dehydration. Dehydration likely secondary to nausea and vomiting, likely secondary to chemotherapeutic agents. She is not tachypneic, hypoxic, and there is no lower extremity swelling or asymmetry. 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 Transfuse PRBC if necessary. I discussed this plan of care with the patient. She is agreeable to the plan of care. Reassess after laboratory studies have resulted 01/06/22 22:05 Laboratory studies essentially unremarkable. Leukopenia likely secondary to chemotherapy. Mildly dehydrated. D-dimer negative. Tachycardia improving. Patient asking to drink water. 01/06/22 22:13 Patient reassessed. Patient vomiting. Additional antiemetics ordered. Updated patient with laboratory studies. She articulates understanding Reevaluation #2: 01/06/22 23:05 Heart rate 105 bpm. No active vomiting after Zofran. I personally provided this patient with apple juice, which she is able to drink. She does endorse feeling improved. Chest x-ray appears to be unremarkable. All questions answered. Return precautions are reviewed ED Medical Decision Making - Lab Data Result diagrams: 01/06/22 20:29 01/06/22 20:29 Vital Signs 01/06/22 14:45 Temperature 98.4 F Pulse Rate 129 H Respiratory 20 Rate Blood Pressure 124/77 O2 Sat by Pulse 98 Oximetry Vital Signs 01/06/22 01/06/22 01/06/22 14:45 20:38 20:45 Temperature 98.4 F Pulse Rate 129 H 110 H 111 H Respiratory 20 19 18 Rate Blood Pressure 124/77 107/64 O2 Sat by Pulse 98 Oximetry 01/06/22 01/06/22 21:01 21:15 Temperature Pulse Rate 100 H 99 H Respiratory 20 24 Rate Blood Pressure 107/64 103/62 O2 Sat by Pulse 98 99 Oximetry Lab Results 01/06/22 01/06/22 01/06/22 Range/Units 20:29 20:29 20:29 WBC 2.9 L (4.5-11.0) K/mm3 RBC 3.72 (3.65-5.03) M/mm3 Hgb 11.0 (10.1-14.3) gm/dl Hct 33.3 (30.3-42.9) % MCV 89 (79-97) fl MCH 30 (28-32) pg MCHC 33 (30-34) % RDW 19.6 H (13.2-15.2) % Plt Count 320 (140-440) K/mm3 Lymph % (Auto) 11.4 L (13.4-35.0) % [place] % (Auto) 6.1 (0.0-7.3) % Eos % (Auto) 0.5 (0.0-4.3) % Baso % (Auto) 0.7 (0.0-1.8) % Lymph # (Auto) 0.3 L (1.2-5.4) K/mm3 [place] # (Auto) 0.2 (0.0-0.8) K/mm3 Eos # (Auto) 0.0 (0.0-0.4) K/mm3 Baso # (Auto) 0.0 (0.0-0.1) K/mm3 Seg Neutrophils % 81.3 H (40.0-70.0) % Seg Neutrophils # 2.4 (1.8-7.7) K/mm3 PT 15.5 H (12.2-14.9) Sec. INR 1.10 (0.87-1.13) APTT 27.5 (24.2-36.6) Sec. D-Dimer (0-234) ng/mlDDU Sodium 139 (137-145) mmol/L Potassium 4.1 (3.6-5.0) mmol/L Chloride 100.3 (98-107) mmol/L Carbon Dioxide 29 (22-30) mmol/L Anion Gap 14 mmol/L BUN 18 H (7-17) mg/dL Creatinine 0.9 (0.6-1.2) mg/dL Estimated GFR > 60 ml/min BUN/Creatinine Ratio 20 % Glucose 84 (65-100) mg/dL Calcium 9.1 (8.4-10.2) mg/dL Phosphorus 4.80 H (2.5-4.5) mg/dL Magnesium 1.70 (1.7-2.3) mg/dL Total Bilirubin 0.70 (0.1-1.2) mg/dL AST 48 H (5-40) units/L ALT 47 (7-56) units/L Alkaline Phosphatase 156 H (35-129) units/L Lactate Dehydrogenase (91-180) units/L Total Creatine Kinase 63 (30-135) units/L Total Protein 6.0 L (6.3-8.2) g/dL Albumin 3.6 L (3.9-5) g/dL Albumin/Globulin Ratio 1.5 % Blood Type 01/06/22 01/06/22 01/06/22 Range/Units 20:29 21:02 21:18 WBC (4.5-11.0) K/mm3 RBC (3.65-5.03) M/mm3 Hgb (10.1-14.3) gm/dl Hct (30.3-42.9) % MCV (79-97) fl MCH (28-32) pg MCHC (30-34) % RDW (13.2-15.2) % Plt Count (140-440) K/mm3 Lymph % (Auto) (13.4-35.0) % [place] % (Auto) (0.0-7.3) % Eos % (Auto) (0.0-4.3) % Baso % (Auto) (0.0-1.8) % Lymph # (Auto) (1.2-5.4) K/mm3 [place] # (Auto) (0.0-0.8) K/mm3 Eos # (Auto) (0.0-0.4) K/mm3 Baso # (Auto) (0.0-0.1) K/mm3 Seg Neutrophils % (40.0-70.0) % Seg Neutrophils # (1.8-7.7) K/mm3 PT (12.2-14.9) Sec. INR (0.87-1.13) APTT (24.2-36.6) Sec. D-Dimer 220.28 (0-234) ng/mlDDU Sodium (137-145) mmol/L Potassium (3.6-5.0) mmol/L Chloride (98-107) mmol/L Carbon Dioxide (22-30) mmol/L Anion Gap mmol/L BUN (7-17) mg/dL Creatinine (0.6-1.2) mg/dL Estimated GFR ml/min BUN/Creatinine Ratio % Glucose (65-100) mg/dL Calcium (8.4-10.2) mg/dL Phosphorus (2.5-4.5) mg/dL Magnesium (1.7-2.3) mg/dL Total Bilirubin (0.1-1.2) mg/dL AST (5-40) units/L ALT (7-56) units/L Alkaline Phosphatase (35-129) units/L Lactate Dehydrogenase 216 H (91-180) units/L Total Creatine Kinase (30-135) units/L Total Protein (6.3-8.2) g/dL Albumin (3.9-5) g/dL Albumin/Globulin Ratio % Blood Type O POSITIVE - EKG Data -: EKG Interpreted by Me Rate: tachycardia - EKG Data 01/06/22 20:51 The EKG is interpreted at 14: 59 Sinus tachycardia, with a rate of 112 bpm. There is a normal axis and a normal P wave axis. The QTC is 3 5 0 ms. This is an abnormal EKG. This is not a STEMI - Radiology Data Radiology results: pending, image reviewed interpreted by me: 1 view x-ray of the chest, interpreted by myself, no infiltrate, no pneumothora x, clear lung Critical care attestation.: If time is entered above; I have spent that time in minutes in the direct care of this critically ill patient, excluding procedure time. ED Disposition Clinical Impression: Dehydration, Nausea and vomiting, Shortness of breath Disposition: 01 HOME / SELF CARE / HOMELESS Is pt being admited?: No Does the pt Need Aspirin: No Condition: Good Additional Instructions: Advance diet as tolerated. Advance fluid as tolerated. Start with Pedialyte, or Gatorade mixed with water. Avoid consumption of alcohol, tobacco, smoke products, heavy and spicy foods. When initiating oral feeds, start with gentle foods, such as bread, rice, apples, toast. May take the Zofran and/or radha tablets orally as prescribed, use the Phenergan suppositories only as needed for intractable nausea and vomiting, not relieved by the radha and/or Zofran tablets. Follow-up with your outpatient hematology business taxes specialist on the of this month as scheduled. Please return to the emergency room right away with new pain, worsened pain, migration of pain, projectile vomiting, change in mental status, confusion, inability tolerate liquid feeds, new, worsened or different symptoms not present on the initial emergency room evaluation Prescriptions: Radha Root [Radha] 250 mg PO QID PRN #30 capsule PRN Reason: Nausea Promethazine [Phenergan] 25 mg MS Q6HR PRN #15 supp.rect PRN Reason: Nausea Ondansetron [Zofran Odt] 4 mg PO Q8HR PRN #20 tab.rapdis PRN Reason: Nausea Referrals: PRIMARY CARE, [Referring] - 01/16/22 (Please follow-up with your private hematology business taxes specialist as scheduled on January 16.) Forms: Work/School Release Form(ED)
[2022-01-06 20:54] LABS: Basophils % (Auto) 0.7 % (0.0-1.8); Eosinophils % (Auto) 0.5 % (0.0-4.3); Hematocrit 33.3 % (30.3-42.9); Lymphocytes # (Auto) 0.3 K/mm3 (1.2-5.4); Lymphocytes % (Auto) 11.4 % (13.4-35.0); Mean Corpuscular HGB Conc 33 % (30-34); Mean Corpuscular Volume 89 fl (79-97); Monocytes # (Auto) 0.2 K/mm3 (0.0-0.8); Monocytes % (Auto) 6.1 % (0.0-7.3); Platelet Count 320 K/mm3 (140-440); Red Blood Count 3.72 M/mm3 (3.65-5.03); Red Cell Distribution Width 19.6 % (13.2-15.2)
[2022-01-06 21:09] LABS: INR 1.1 (0.87-1.13)
[2022-01-06 21:10] LABS: Partial Thromboplastin Time 27.5 Sec. (24.2-36.6)
[2022-01-06 21:17] LABS: Alanine Aminotransferase 47 units/L (7-56); Albumin 3.6 g/dL (3.9-5); BUN/Creatinine Ratio 20; Blood Urea Nitrogen 18 mg/dL (7-17); Calcium 9.1 mg/dL (8.4-10.2); Hemolysis Index 4
[2022-01-06] MEDS ORDERED: ONDANSETRON 4 MG/2 ML INJ IV ONE (22:12)
[2022-01-06] MEDS ORDERED: LACTATED RINGERS 1,000 ML IV ONE (22:13)
--- NOTE | 2022-01-06 23:10 | XRay Report ---
CHEST 1 VIEW 01/06/2022 10:45 PM INDICATION / CLINICAL INFORMATION: dyspnea. COMPARISON: 2 views of the chest from 07/21/2021. FINDINGS: SUPPORT DEVICES: None. HEART / MEDIASTINUM: No significant abnormality. LUNGS / PLEURA: No significant pulmonary abnormality. No significant pleural effusion. No pneumothora x. ADDITIONAL FINDINGS: No significant additional findings. IMPRESSION: 1. No acute abnormality of the chest. Signer Name: Murali Reynolds MD Signed: 01/06/2022 11:05 PM Workstation Name: [id number]
[2022-01-07 01:28] VITALS: BP 102/54
--- NOTE | 2022-01-07 16:57 | Electrocardiograph Report ---
[facility] Test Date: 2022-01-06 Test Time: 14:59:32 Pat Name: DOMO FERNANDEZ Department: Room: Gender: F Roll Operator: MIKAYLA : 1995 Requested By: CIRILO CARRILLO Order Number: [id number] Reading MD: Iveth Schultz Measurements Intervals [place] Rate: 112 P: 70 WV: 114 QRS: -11 QRSD: 66 T: 41 QT: 256 QTc: 350 Interpretive Statements Sinus tachycardia Compared to ECG 07/21/2021 19:03:47 No significant changes Electronically Signed On 01-07-2022 16:57:00 EDT by Iveth Schultz
== END 2022-01-07 01:20 | disposition home or self-care (01) ==
LOC: ED 13:33
DX: R11.2 Nausea with vomiting, unspecified (principal); E86.0 Dehydration; R06.02 Shortness of breath; Z85.9 Personal history of malignant neoplasm, unspecified
CPT/HCPCS: 36415; 71045; 80053; 82550; 83615; 83735; 84100; 84702; 85025; 85379; 85610; 85730; 86850; 86900; 86901; 93005; 96361; 96374; 96375; 99284; C9113; J2405; J2765; J7120; 82330